=== PATIENT | female | born 2000 | race African-American/Black ===

== ENCOUNTER 2020-07-07 20:11 | Emergency (ER) | payer OTHER, SELFPAY ==
--- OUTSIDE RECORDS SUMMARY | 2020-07-07 20:14 | XMS REPORT | Continuity of Care Document ---
:2000 Author Organization 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 Clinician (SIG) Name Name Doxycycline Doxycycline 2019- No Bill [address] [facility] Monohydrate Monohydrate 11-22 Gonzalez [facility] - 00:00: 00:00 [facility] 00 :[facility] Procedures This patient has no known procedures. Encounters Start End Encounter Admission Attending Care Care Encounter Source Date/Time Date/Time Type Type Clinicians Facility Department ID 2018-11-22 2018-11-22 [facility] [id number] [facility] 11:15:00 11:15:00 Art[facility] It s [facility] 2018-11-07 2018-11-07 [facility] [id number] [facility] 11:30:00 11:30:00 [facility] 2018-10-14 2018-10-14 Emergency E [facility] [address] [facility] 23:34:00 23:34:00 2018-06-26 2018-06-26 Outpatient Kiel [facility] [id number] [facility] 15:00:00 15:00:00 [facility] Results This patient has no known results.
--- NOTE | 2020-07-08 02:25 | ER ---
[facility]: Henny Haimlton Age: 20 yrs Sex: Female : 2000 Arrival Date: 07/07/2020 Time: 20:16 Bed External Waiting Private MD: Diagnosis: Presentation: 07/07 21:00 Chief complaint: Patient states: 4 months . Vaginal bleeding since last night. ca1 Reports cramping, back pains. Coronavirus screen: Client denies travel out of the [place] in the last 14 days. At this time, the client does not indicate any symptoms associated with coronavirus-19. Ebola Screen: Patient negative for fever greater than or equal to 101.5 degrees Fahrenheit, and additional compatible Ebola Virus Disease symptoms Patient denies exposure to infectious person. Patient denies travel to an Ebola-affected area in the 21 days before illness onset. No symptoms or risks identified at this time. Initial Sepsis Screen: Does the patient meet any 2 criteria? No. Patient's initial sepsis screen is negative. Does the patient have a suspected source of infection? No. Patient's initial sepsis screen is negative. Risk Assessment: Do you want to hurt yourself or someone else? Patient reports no desire to harm self or others. Note Called to triage, no answer \T\ 2100. Onset of symptoms was July 07, 2020. 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 - Social history:: Smoking status: Patient denies any tobacco usage or history of. Assessment: 07/08 01:23 Reassessment: pt updated on NEG US results by ERP, pt to have blood drawn to complete sg treatment plan, pt continues to wait for an exam room at this time. Vital Signs: 07/07 21:20 BP 126 / 79; Pulse 96; Resp 16 S; Temp 97.5(TE); Pulse Ox 99% on R/A; Weight 77.11 kg ca1 (R); Height 5 ft. 6 in. (167.64 cm) (R); Pain 7/10; 21:20 Body Mass Index 27.44 (77.11 kg, 167.64 cm) ca1 ED Course: 20:16 Patient arrived in ED. ag3 21:22 Triage completed. ca1 21:23 Arm band placed on right wrist. ca1 22:13 Arnulfo Ko MD is Attending Physician. tw4 23:43 OB Limited In Process Unspecified. EDMS 07/08 00:18 Transvaginal OB In Process Unspecified. EDMS Administered Medications: No medications were administered Outcome: 02:24 Patient left the ED. sg Signatures: Dispatcher [employer] EDMS Skinny Bryant, RN RN Arnulfo Ko MD MD tw4 Nancy Tipton 3 Analy Cerrato RN RN ca1
[2020-07-08 03:44] LABS: Urine Specific Gravity 1.025 (1.005-1.030)
[2020-07-08 03:45] LABS: Urine Blood 3+ (NEG); Urine Glucose NEGATIVE (NEG); Urine Protein NEGATIVE (NEG); Urine Specific Gravity 1.025 (1.005-1.030)
[2020-07-08 04:57] VITALS: BP 126/79; TEMP 97.5; O2SAT 99
--- NOTE | 2020-07-08 10:31 | RAD REPORT ---
EXAM DESCRIPTION: US - Transvaginal Study Probe - 07/08/2020 6:59 am CLINICAL HISTORY: VAGINAL BLEEDING COMPARISON: None. TECHNIQUE: US LIMITED 07/07/2020 12:00 AM CDT FINDINGS: The uterus measures 8.3 cm. Endometrial stripe measures 4 mm. Both ovaries are normal in s ize with patent flow. IMPRESSION: Unremarkable study. Electronically signed by: Manny Lara MD 07/07/2020 10:33 PM CDT Due to temporary technical issues with the PACS/Fluency reporting system, reports are being signed by the in house radiologist without review as a courtesy to ensure prompt reporting. The interpreting r adiologist is fully responsible for the content of the report.
== END 2020-07-08 02:24 | disposition left against medical advice (07) ==
LOC: ER 20:11
DX: Z53.21 Procedure and treatment not carried out due to patient leaving prior to being seen by health care provider (principal)
CPT/HCPCS: 76815; 76830; 81003; 81025; 99282

== ENCOUNTER 2020-08-03 09:32 | Emergency (ER) | payer OTHER, SELFPAY ==
--- OUTSIDE RECORDS SUMMARY | 2020-08-03 09:36 | XMS REPORT | Continuity of Care Document ---
:2000 Author Organization [facility] t Address 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 Clinician (SIG) Name Name Doxycycline Doxycycline 2019- No Bill [address] Monohydrate Monohydrate 11-2214 Carlos Adame - 00:00: 00:00 [facility] 00 :00 [facility] Procedures This patient has no known procedures. Encounters Start End Encounter Admission Attending Care Care Encounter Source Date/Time Date/Time Type Type Clinicians Facility Department ID 2018-11-22 2018-11-22 Outpatient Kiel Kielizabella [id number] [address] 11:15:00 11:15:00 [facility]INOS [facility] 2018-11-07 2018-11-07 Outpatient Darekargenis Sandra [id number] [address] 11:30:00 11:30:00 [facility] 2018-10-14 2018-10-14 Emergency E [facility] [address] [facility] 23:34:00 23:34:00 2018-06-26 2018-06-26 Outpatient Darekargenis Sandra [id number] 15:00:00 15:00:00 [facility] Results Test Description Test Time Test Comments Results Result Comments Source HCG SERUM 2020-07-16 18:31:00 Test Item Value Reference Range Interpretation Comme nts HCG SERUM (test code = HCG) < 1 mi-IU/ML 0-6 N 0 - 6 NOT > 6 SUGGESTIVE OF EARLY RISES TWO FOLD EVERY 2 DAYS; SUGGEST REC ONFIRMING AFTER 2 D AYS. 150,000-200,[address] TRIMESTER 10,000 - 50,000 2ND & 3RD TRIME STER BASIC METABOLIC [id number] 18:15:00 Test Item Value Reference Range Interpretation Comments SODIUM (test code = NA) 138 mmol/L 134-147 N POTASSIUM (test code = 3.3 mmol/L 3.4-5.0 L K) CHLORIDE (test code = 105 mmol/L 100-108 N CL) CARBON DIOXIDE (test 28 mmol/L 21-32 N code = CO2) ANION GAP (test code = 5.0 GAP calc 4.0-15.0 N GAP) GLUCOSE (test code = 93 MG/DL 70-110 N GLU) BLOOD UREA NITROGEN 11 MG/DL 7-18 N (test code = BUN) GLOMERULAR FILTRATION >=60 max estimate >60 RATE (test code = GFR) estGFR CREATININE (test code = 0.6 MG/DL 0.6-1.0 N CREAT) CALCIUM (test code = CA) 9.1 MG/DL 8.5-10.1 N CBC W/AUTO [id number] 18:08:00 Test Item Value Reference Range Interpretation Comments WHITE BLOOD CELL (test code = 5.0 K/mm3 3.5-11.0 N WBC) RED BLOOD CELL (test code = 3.57 M/mm3 4.70-6.10 L RBC) HEMOGLOBIN (test code = HGB) 10.2 G/DL 10.4-14.9 L HEMATOCRIT (test code = HCT) 31.7 % 31.5-44.1 N MEAN CELL VOLUME (test code = 88.8 Fl 84.5-98.6 N MCV) MEAN CELL HGB (test code = MCH) 28.6 pg 27.0-34.2 N MEAN CELL HGB CONCETRATION 32.2 G/DL 31.5-34.0 N (test code = MCHC) RED CELL DISTRIBUTION WIDTH 15.2 SD 11.5-14.5 H (test code = RDW) PLATELET COUNT (test code = 329 K/mm3 150-450 N PLT) MEAN PLATELET VOLUME (test code 8.60 fL 7.0-10.5 N = MPV) NEUTROPHIL % (test code = NT%) 58.1 % 40-76 N IMMATURE GRANULOCYTE % (test 0.4 % 0.0-5.0 N code = IG%) LYMPHOCYTE % (test code = LY%) 32.7 % 20.5-51.1 N MONOCYTE % (test code = MO%) 8.4 % 1.7-9.3 N EOSINOPHIL % (test code = EO%) 0.2 % 0.0-6.0 N BASOPHIL % (test code = BA%) 0.2 % 0.0-2.0 N NUCLEATED RBC % (test code = 0.0 /100WBC% 0.0-1.0 N NRBC%) NEUTROPHIL # (test code = NT#) 2.9 K/mm3 1.8-7.6 N IMMATURE GRANULOCYTE # (test 0.02 x10 3/uL 0.00-0.03 N code = IG#) LYMPHOCYTE # (test code = LY#) 1.6 K/mm3 0.6-3.2 N MONOCYTE # (test code = MO#) 0.4 K/mm3 0.3-1.1 N EOSINOPHIL # (test code = EO#) 0.0 K/mm3 0.0-0.4 N BASOPHIL # (test code = BA#) 0.0 K/mm3 0.0-0.1 N NUCLEATED RBC # (test code = 0.0 K/mm3 0.0-0.1 N NRBC#) MANUAL DIFF REQUIRED (test code NO DIFF/SCN CRITERIA = MDIFF) UA RFLX MICR CULT IF [id number] 18:04:00 Test Item Value Reference Range Interpretation Comments UA COLOR (test code = RED discript YEL/STRAW A COLU) UA APPEARANCE (test code HAZY discript CLEAR A = APPU) UA GLUCOSE DIPSTICK (test NEGATIVE mg/dL NEG code = DGLUU) UA BILIRUBIN DIPSTICK NEGATIVE mg/dL NEG (test code = BILU) UA KETONE DIPSTICK (test NEGATIVE mg/dL NEG code = KETU) UA SPECIFIC GRAVITY (test 1.020 SG 1.005-1.030 code = SGU) UA BLOOD DIPSTICK (test 3+ mg/DL NEG A code = ANGEL) UA PH DIPSTICK (test code 7.5 pH UNITS 5.0-7.0 A = KULWANT) UA PROTEIN DIPSTICK (test TRACE mg/dL NEG A code = PROU) UA UROBILINIOGEN DIPSTICK 0.2 mg/dL <2.0 (test code = URO) UA NITRITE DIPSTICK (test NEGATIVE SCREEN NEG code = ROMINA) UA LEUKOCYTE ESTERASE NEGATIVE Leuk/mcL NEGATIVE DIPSTICK (test code = LEUU) UA WBC (test code = WBCU) 5-10 #WBC/HPF 0-3 A UA RBC (test code = RBCU) 1-3 #RBC/HPF 0-3 UA BACTERIA (test code = 1+ /HPF NONE-TRACE A BACU) UA CULTURE NEEDED? (test NO, WBC<10 Criteria Culture CHK code = UACULT) Indication for culture: Dysuria/FrequencyUA RFLX MICR CULT IF INDICATED 2020-07-16 17:57:00 Test Item Value Reference Range Interpretation Comments UA COLOR (test code = COLU) RED discript YEL/STRAW A UA APPEARANCE (test code = HAZY discript CLEAR A APPU) UA GLUCOSE DIPSTICK (test NEGATIVE mg/dL NEG code = DGLUU) UA BILIRUBIN DIPSTICK (test NEGATIVE mg/dL NEG code = BILU) UA KETONE DIPSTICK (test NEGATIVE mg/dL NEG code = KETU) UA SPECIFIC GRAVITY (test 1.020 SG 1.005-1.030 code = SGU) UA BLOOD DIPSTICK (test 3+ mg/DL NEG A code = ANGEL) UA PH DIPSTICK (test code = 7.5 pH UNITS 5.0-7.0 A KULWANT) UA PROTEIN DIPSTICK (test TRACE mg/dL NEG A code = PROU) UA UROBILINIOGEN DIPSTICK 0.2 mg/dL <2.0 (test code = URO) UA NITRITE DIPSTICK (test NEGATIVE SCREEN NEG code = ROMINA) UA LEUKOCYTE ESTERASE NEGATIVE Leuk/mcL NEGATIVE DIPSTICK (test code = LEUU) UA CULTURE NEEDED? (test Criteria Culture CHK code = UACULT) Indication for culture: Dysuria/Frequency- US PREG 1ST [id number] 17:52:00[facility] 2000 Sex: F Name: MARYSE ROBLES [facility] : 2000 Age/S: 20 / F [id number] [address] [place] Unit #: [id number] Loc: [place] [address] Phys: Vishnu Sanon MD Acct: [id number] Dis Date: Status: REG ER PHONE #: [phone] Exam Date: 07/16/2020 1723 FAX #: Reason: pelvic pain EXAMS: CPT: [id number] US PREG 1ST TRIMTR [id number] Pelvic ultrasound History: pelvic pain Comparison: None at this time Location: H45 Transabdominal and endovaginal sonography of the pelvis was performed. The uterus measures 8.5 x 4.1 x 4.1 centimeters in length, AP diameter and width. The endometrial stripe measures 5 mm in thickness. No intrauterine is identified. The right ovary measures 4.2 x 1.5 x 3.2 cm in size. The left ovary measures 4.2 x 2.2x 2.9 cm in size. There is a trace amount of free fluid. No adnexal masses are seen. Spectral Doppler, color flow Doppler and grayscale sonography of the ovaries was performed. There is arterial blood flow identified within both ovaries. There are nabothian cysts in the cervix. IMPRESSION: There is a trace amount of free fluid in the pelvis. Otherwise unremarkable exam. No intrauterine is identified. With a given history of positive test and no intrauteri ne identified, these findings could represent a very early intrauterine orectopic that is not visualized or a nearly completed . Follow-up beta hCGand pelvic ultrasound are recommended. at 1752 Reported and signed by: Jax Lujan M.D. PAGE 1 Signed Report (CONTINUED) Name: MARYSE ROBLES [facility] : 2000 Age/S: 20 / F [address] [address] [place] Unit #: [id number] Loc: [place] [address] Phys: Vishnu Sanon MD Acct: [id number] Dis Date: Status: REG ER PHONE #: [phone] Exam Date: 07/16/2020 1724 FAX #: Reason: pelvic pain EXAMS: CPT: [id number] US PREG 1ST TRIMTR [id number] <Continued> CC: Vishnu Sanon MD Technologist: Barb Mcpherson [facility] Date/Time: 07/16/2020 (1752) Hodan PAGE 2 Signed Report Name[facility] 2000 Age/S: 20 / F [id number] [address] [place] Unit #: [id number] Loc: [place] [address] Phys: Vishnu Sanon MD Acct: [id number] Dis Date: Status: REG ER PHONE #: [phone] Exam Date: 07/16/20201722 FAX #: Reason: pelvic pain EXAMS: CPT: [id number] US PREG 1ST TRIMTR 52453 <Continued> Orig Print D/T: S: 07/16/2020 (1755) Probe: PAGE 3 Signed Report- US PREG UT [id number] 17:52:00 [facility] : 2000 Sex: F Name: MARYSE ROBLES [facility] : 2000 Age/S: 20 / F [id number] [facility] Unit #: [id number] Loc: [place] [address] Phys: Vishnu Sanon MD Acct: [id number] Dis Date: Status: REG ER PHONE #: [phone] Exam Date: 07/16/20201722 FAX #: Reason: pelvic pain EXAMS: CPT: [id number] US PREG UT TRANSVAGINAL 22662 Pelvic ultrasound History: pelvic pain Comparison: None at this time Location: H45 Transabdominal and endovaginal sonography of the pelvis was performed. The uterus measures 8.5 x 4.1 x 4.1 centimeters in length, AP diameter and width. The endometrial stripe measures 5 mm in thickness. No intrauterine is identified. The right ovary measures 4.2 x 1.5 x 3.2 cm in size. The left ovary measures 4.2 x 2.2x 2.9 cm in size. There is a trace amount of free fluid. No adnexal masses are seen. Spectral Doppler, color flow Doppler and grayscale sonography of the ovaries was performed. There is arterial blood flow identified within both ovaries. There are nabothian cysts in the cervix. IMPRESSION: There is a trace amount of free fluid in the pelvis. Otherwise unremarkable exam. No intrauterine is identified. With a given history of positive test and no intrauteri ne identified, these findings could represent a very early intrauterine orectopic that is not visualized or a nearly completed . Follow-up beta hCGand pelvic ultrasound are recommended. at 1752 Reported and signed by: Jax Lujan M.D. PAGE 1 Signed Report (CONTINUED) Name: MARYSE ROBLES [place] : 2000 Age/S: 20 / F [id number] [address] [place] Unit #: [id number] Loc: [place] [address] Phys: Vishnu Sanon MD Acct: [id number] Dis Date: Status: REG ER PHONE #: [phone] Exam Date: 07/16/2020 1723 FAX #: Reason: pelvic pain EXAMS: CPT: [id number] US PREG UT TRANSVAGINAL 01490 <Continued> CC: Vishnu Sanon MD Technologist: Barb Mcpherson [facility] Date/Time: 07/16/2020 (481) t.SDR.PMT PAGE 2 Signed Report Name: MARYSE ROBLES [place] : 2000 Age/S: 20 / F [id number] [address] [place] Unit #: [id number] Loc: [place] [address] Phys: Vishnu Sanon MD Acct: [id number] Dis Date: Status: REG ER PHONE #: [phone] Exam Date: 07/16/2020 1723 FAX #: Reason: pelvic pain EXAMS: CPT: [id number] US PREG UT TRANSVAGINAL [id number] <Continued> Orig Print D/T: S: 07/16/2020 (9765) Probe: [id number] PAGE 3 Signed Report
--- NOTE | 2020-08-03 10:10 | ER ---
Nurse's Notes [facility] Name: Henny Hamilton Age: 20 yrs Sex: Female : 2000 Arrival Date: 08/03/2020 Time: 09:37 Bed 5 Private MD: Diagnosis: Acute pharyngitis;Otitis media, unspecified, left ear Presentation: 08/03 09:41 Chief complaint: Patient states: sore throat/swelling and left ear pain for weeks. sv Coronavirus screen: Client denies travel out of the [place] in the last 14 days. At this time, the client does not indicate any symptoms associated with coronavirus-19. Ebola Screen: No symptoms or risks identified at this time. Risk Assessment: Do you want to hurt yourself or someone else? Patient reports no desire to harm self or others. Onset of symptoms was 2020. 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 - Social history:: Smoking status: Patient denies any tobacco usage or history of. Screenin:50 Abuse screen: Denies threats or abuse. Denies injuries from another. Nutritional ss screening: No deficits noted. Tuberculosis screening: Never had TB. Fall Risk None identified. Assessment: 09:50 General: Appears uncomfortable, Behavior is calm, cooperative, Reports feeling ill for ss x weeks. Pain: Complains of pain in left ear, throat. Neuro: Level of Consciousness is awake, alert, obeys commands, Oriented to person, place, time, Bin Packer are equal bilaterally Speech is normal. Neuro: Level of Consciousness is awake, alert, obeys commands, Oriented to person, place, time. Cardiovascular: Capillary refill < 3 seconds is brisk in bilateral fingers Patient's skin is warm and dry. Respiratory: Airway is patent Respiratory effort is even, unlabored, Respiratory pattern is regular, symmetrical. GI: Patient currently denies diarrhea, nausea, vomiting. : No signs and/or symptoms were reported regarding the genitourinary system. EENT: Oral mucosa is moist. Throat is clear. Derm: Skin is intact, is healthy with good turgor, Skin is dry, Skin is pink, warm \T\ dry. normal. Derm: Skin is pink, warm \T\ dry. normal. Musculoskeletal: Range of motion: intact in all extremities, Swelling present in throat. Vital Signs: 09:41 Temp 98.9; Weight 74.84 kg; Height 5 ft. 6 in. (167.64 cm); sv 09:50 Resp 14; ss 10:01 BP 122 / 79; Pulse 88; Pulse Ox 100% on R/A; ss 09:41 Body Mass Index 26.63 (74.84 kg, 167.64 cm) sv ED Course: 09:37 Patient arrived in ED. mr 09:38 Orlando Hall, LYNN is PHCP. pm1 09:38 Paul Joel MD is Attending Physician. pm1 09:41 Triage completed. sv 09:42 Arm band placed on Patient placed in an exam room, on a stretcher. sv 09:50 Patient has correct armband on for positive identification. Bed in low position. Call ss light in reach. 10:00 Emily Luna, ULISES is Primary Nurse. hb 10:04 Strep Sent. kj1 10:21 No provider procedures requiring assistance completed. Patient did not have IV access ss during this emergency room visit. Administered Medications: 10:00 Drug: Duncan (HYDROcodone-acetaminophen) 5 mg-325 mg 1 tabs Route: PO; hb 10:20 Follow up: Response: No adverse reaction ss 10:02 Drug: Decadron (dexamethasone) 10 mg Route: IM; Site: right deltoid; hb 10:20 Follow up: Response: No adverse reaction ss Outcome: 10:10 Discharge ordered by MD. pm1 10:21 Discharged to home ambulatory. ss 10:21 Condition: good 10:21 Discharge instructions given to patient, Instructed on discharge instructions, follow up and referral plans. medication usage, Demonstrated understanding of instructions, follow-up care, medications, Prescriptions given X 2. 10:21 Patient left the ED. Signatures: Raine Tong RN RN Trinity Luke mr Tere Landis RN RN Orlando Hall FUR BLOWER FUR BLOWER pm1 Emily Luna, RN RN Donna Stokes kj1
--- NOTE | 2020-08-03 10:11 | EDPHYS ---
Physician Documentation [facility] Name: Henny Hamilton Age: 20 yrs Sex: Female : 2000 Arrival Date: 08/03/2020 Time: 09:37 Bed 5 Private MD: ED Physician Paul Joel HPI: 08/03 09:55 This 20 yrs old Black Female presents to ER via Ambulatory with complaints of Ear Pain, pm1 Sore Throat. 09:55 The patient presents with pain. The complaints affect the left ear. pm1 09:55 Onset: The symptoms/episode began/occurred today, ear pain and sore throat on and off pm1 for multiple weeks. Modifying factors: The symptoms are alleviated by nothing, the symptoms are aggravated by swallowing. Associated signs and symptoms: Pertinent negatives: cough, fever. Severity of symptoms: in the emergency department the symptoms are worse. The patient has experienced similar episodes in the past, multiple times. The patient has not recently seen a physician. 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 - Social history:: Smoking status: Patient denies any tobacco usage or history of. ROS: 09:55 Constitutional: Negative for fever, chills, and weight loss. pm1 09:55 Cardiovascular: Negative for chest pain, palpitations, and edema, Respiratory: Negative for shortness of breath, cough, wheezing, and pleuritic chest pain, Abdomen/GI: Negative for abdominal pain, nausea, vomiting, diarrhea, and constipation, Skin: Negative for injury, rash, and discoloration, Neuro: Negative for headache, weakness, numbness, tingling, and seizure. 09:55 ENT: Positive for ear pain, sore throat, Negative for drainage from ear(s). Exam: 09:55 Constitutional: This is a well developed, well nourished patient who is awake, alert, pm1 and in no acute distress. Head/Face: Normocephalic, atraumatic. 09:55 Back: No spinal tenderness. No costovertebral tenderness. Full range of motion. Skin: Warm, dry with normal turgor. Normal color with no rashes, no lesions, and no evidence of cellulitis. MS/ Extremity: Pulses equal, no cyanosis. Neurovascular intact. Full, normal range of motion. 09:55 Cardiovascular: Exam negative for acute changes, Rate: normal, Rhythm: regular, Pulses: no pulse deficits are appreciated. 09:55 Respiratory: Exam negative for acute changes, respiratory distress, shortness of breath, Breath sounds: are clear throughout. 09:55 Neuro: Exam negative for acute changes, Orientation: is normal, Mentation: is normal, Motor: is normal, moves all fours, Gait: is steady, at a normal pace, without difficulty. 09:55 ENT: External ear(s): are unremarkable, Ear canal(s): are normal, TM's: bulging, on the pm1 left, erythema, that is mild, on the left, Examination of the other ear shows no obvious abnormality, Posterior pharynx: Airway: no evidence of obstruction, Tonsils: bilaterally enlarged, with erythema, with exudate, no ulcerations, peritonsillar mass, is not appreciated, pooling of secretions, is not appreciated. Vital Signs: 09:41 Temp 98.9; Weight 74.84 kg; Height 5 ft. 6 in. (167.64 cm); sv 09:50 Resp 14; ss 10:01 BP 122 / 79; Pulse 88; Pulse Ox 100% on R/A; ss 09:41 Body Mass Index 26.63 (74.84 kg, 167.64 cm) sv MDM: 09:39 Patient medically screened. pm1 10:03 Data reviewed: vital signs. Data interpreted: Pulse oximetry: on room air is 100 %. pm1 Interpretation: normal. 10:09 Counseling: I had a detailed discussion with the patient and/or guardian regarding: the pm1 historical points, exam findings, and any diagnostic results supporting the discharge/admit diagnosis, the need for outpatient follow up, to return to the emergency department if symptoms worsen or persist or if there are any questions or concerns that arise at home. 08/03 09:55 Order name: Strep; Complete Time: 11:00 pm1 08/03 10:18 Order name: Throat Culture EDMS Administered Medications: 10:00 Drug: [place] (HYDROcodone-acetaminophen) 5 mg-325 mg 1 tabs Route: PO; hb 10:20 Follow up: Response: No adverse reaction ss 10:02 Drug: Decadron (dexamethasone) 10 mg Route: IM; Site: right deltoid; hb 10:20 Follow up: Response: No adverse reaction ss Disposition: 12:21 Co-signature as Attending Physician, Paul Joel MD. rn Disposition: 08/03/20 10:10 Discharged to Home. Impression: Acute pharyngitis, Otitis media, unspecified, left ear. - Condition is Stable. - Discharge Instructions: Otitis Media, Adult, Pharyngitis. - Prescriptions for Diclofenac Sodium 75 mg Oral Tablet, Delayed Release (E.C.) - take 1 tablet by ORAL route 2 times per day As needed; 30 tablet. Augmentin 875- 125 mg Oral Tablet - take 1 tablet by ORAL route every 12 hours for 10 days; 20 tablet. - Work release form, Medication Reconciliation Form, Thank You Letter, Antibiotic Education, Prescription Opioid Use form. - Follow up: Emergency Department; When: As needed; Reason: Worsening of condition. Follow up: Private Physician; When: 2 - 3 days; Reason: Recheck today's complaints, Continuance of care, Re-evaluation by your physician. - Problem is new. - Symptoms have improved. Signatures: Dispatcher [employer] EDRaine Wood, RN Paul Villalba MD MD rn Smirch, Shelby, RN RN ss Orlando Hall, BUDGET ACCOUNTANT BUDGET ACCOUNTANT pm1 Emily Luna RN RN Corrections: (The following items were deleted from the chart) 10:21 10:10 08/03/2020 10:10 Discharged to Home. Impression: Acute pharyngitis; Otitis media, ss unspecified, left ear. Condition is Stable. Forms are Medication Reconciliation Form, Thank You Letter, Antibiotic Education, Prescription Opioid Use. Follow up: Emergency Department; When: As needed; Reason: Worsening of condition. Follow up: Private Physician; When: 2 - 3 days; Reason: Recheck today's complaints, Continuance of care, Re-evaluation by your physician. Problem is new. Symptoms have improved. pm1
[2020-08-03] MEDS ORDERED: dexAMETHasone 10 MG/ML VIAL ONE (10:16)
[2020-08-03] MEDS ORDERED: HYDROCODONE/APAP 5/325 MG TAB ONE (10:16)
== END 2020-08-03 10:21 | disposition home or self-care (01) ==
LOC: ER 09:32
DX: H66.92 Otitis media, unspecified, left ear (principal); J02.9 Acute pharyngitis, unspecified; Z88.1 Allergy status to other antibiotic agents
CPT/HCPCS: 87070; 87081; 96372; 99283; J1100

== ENCOUNTER 2020-12-23 02:02 | Emergency (ER) | payer OTHER ==
--- OUTSIDE RECORDS SUMMARY | 2020-12-23 02:05 | XMS REPORT | Continuity of Care Document ---
:2000 Author Organization [facility] t Address [address] [place] [address] [address] [place] [address] Care Team Providers Name Role Phone Unavailable Unavailable Unavailable Payers Payer Name Policy Type Policy Number Effective Date Expiration Date S ource Problems Condition Condition Condition Status Onset Resolution Last Treating Co mments Source Name Details Category Date Date Treatment Clinician Date Cannabis Cannabis Diagnosis Active [facility] Adult BMI Adult BMI Diagnosis Active [facility] 26.0-26.9 26.0-26.9 Luke s - kg/sq m kg/sq m [facility] 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 Clinician (SIG) Name Name Doxycycline Doxycycline 2019- No Bill [address] [facility] Monohydrate Monohydrate 11-22 [facility]: [facility]00 [facility] 00 :00 [facility] Procedures This patient has no known procedures. Encounters Start End Encounter Admission Attending Care Care Encounter Source Date/Time Date/Time Type Type Clinicians Facility Department ID 2018-11-22 2018-11-22 Outpatient Kiel Melvin [id number] [facility] 11:15:00 11:15:00 [facility] [employer] [facility] 2018-11-07 2018-11-07 Outpatient Kiel Flores [id number] 11:30:00 11:30:00 [facility] [employer] [facility] 2018-10-14 2018-10-14 Emergency E [facility] [id number] [facility] 23:34:00 23:34:00 2018-06-26 2018-06-26 Outpatient Kiel Flores [id number] 15:00:00 15:00:00 [facility] Results Test Description Test Time Test Comments [...] 2ND & 3RD TRIME STER BASIC METABOLIC [id number] 18:15:00 Test Item Value Reference Range Interpretation [...] CA) 9.1 MG/DL 8.5-10.1 N CBC W/AUTO [id number] 18:08:00 Test Item Value Reference Range Interpretation [...] = MDIFF) UA RFLX MICR CULT IF [id number] 18:04:00 Test Item Value Reference Range Interpretation [...] Indication for culture: Dysuria/Frequency- US PREG 1ST [id number] [facility]52[facility] 2000 Sex: F Name: MARYSE ROBLES [facility] : 2000 Age/S: 20 / F [address] Unit #: [id number] Loc: [place]kie Rawls [address] Phys: Vishnu Sanon MD Acct: [id number] Dis Date: Status: REG ER PHONE #: [phone] Exam Date: 07/16/2020 1723 FAX #: Reason: pelvic pain EXAMS: CPT: [id number] US PREG 1ST TRIMTR [id number] Pelvic ultrasound History: pelvic pain Comparison: None [...] 1 Signed Report (CONTINUED) Name: MARYSE ROBLES [facility] : 2000 Age/S: 20 / F [id number] [address] Unit #: [id number] Loc: [place] [address] Phys: Vishnu Sanon MD Acct: [id number] Dis Date: Status: REG ER PHONE #: [phone] Exam Date: 07/16/2020 1723 FAX #: Reason: pelvic pain EXAMS: CPT: [id number] US PREG 1ST TRIMTR [id number] <Continued> CC: iVshnu Sanon MD Technologist: Barb Mcpherson Trnscb Date/Time: 07/16/2020 (1752) [place] PAGE 2 Signed Report Name: MARYSE ROBLES [facility] : 2000 Age/S: 20 / F [address] Unit #: [id number] Loc: [place] [address] Phys: Vishnu Sanon MD Acct: [id number] Dis Date: Status: REG ER PHONE #: [phone] Exam Date: 07/16/20201722 FAX #: Reason: pelvic pain EXAMS: CPT: [id number] US PREG 1ST TRIMTR [id number] <Continued> Orig Print D/T: S: 07/16/2020 (9155) Probe: PAGE 3 Signed Report- US PREG UT [id number] 17:52:00 [facility] 2000 Sex: F Name: MARYSE ROBLES [facility] : 2000 Age/S: 20 / F [id number] [address] Unit #: [id number] Loc: [place] [address] Phys: Vishnu Sanon MD Acct: [id number] Dis Date: Status: REG ER PHONE #: [phone] Exam Date: 07/16/20201722 FAX #: Reason: pelvic pain EXAMS: CPT: [id number] US PREG UT TRANSVAGINAL [id number] Pelvic ultrasound History: pelvic pain Comparison: None at this time Location: 5 Transabdominal and endovaginal sonography of the pelvis [...] PAGE 1 Signed Report (CONTINUED) [place]: [place] : 2000 Age/S: 20 / F [id number] [address] Unit #: [id number] Loc: [place] [address] Phys: Vishnu Sanon MD Acct: [id number] Dis Date: Status: REG ER PHONE #: [phone] Exam Date: 07/16/2020 172 FAX #: Reason: pelvic pain EXAMS: CPT: [id number] US PREG UT TRANSVAGINAL [id number] <Continued> CC: Vishnu Sanon MD Technologist: Barb Mcpherson Trnmdb Date/Time: 07/16/2020 (1752) [email or web address] PAGE 2 Signed Report Name: MARYSE ROBLES [place] : 2000 Age/S: 20 / F [id number] [address] Unit #: [id number] Loc: [place] [address] Phys: Vishnu Sanon MD Acct: [id number] Dis Date: Status: REG ER PHONE #: [phone] Exam Date: 07/16/2020 172 FAX #: Reason: pelvic pain EXAMS: CPT: [id number] US PREG UT TRANSVAGINAL [id number] <Continued> Orig Print D/T: S: 07/16/2020 (9525) Probe: [id number] PAGE 3 Signed Report
--- NOTE | 2020-12-23 02:34 | EDPHYS ---
Physician Documentation [facility] Name: Henny Hamilton Age: 20 yrs Sex: Female : 2000 Arrival Date: 12/23/2020 Time: 02:04 Bed 16 Private MD: ED Physician Nory Banks HPI: 12/23 02:32 This 20 yrs old Black Female presents to ER via Ambulatory with complaints of Sore ma2 Throat. 02:32 The patient presents with sore throat. The patient describes throat pain as constant. ma2 Onset: The symptoms/episode began/occurred gradually, 1 week(s) ago. Severity of symptoms: At their worst the symptoms were mild, in the emergency department the symptoms are unchanged. Associated signs and symptoms: Pertinent negatives cough, earache, flu-like symptoms, nausea. The patient has not experienced similar symptoms in the past. 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 - Social history:: Smoking status: Patient denies any tobacco usage or history of. - Family history:: not pertinent. ROS: 02:32 Constitutional: Negative for fever, chills, and weight loss. ma2 02:32 All other systems are negative. Exam: 02:32 Constitutional: This is a well developed, well nourished patient who is awake, alert, ma2 and in no acute distress. Head/Face: Normocephalic, atraumatic. Eyes: Pupils equal round and reactive to light, extra-ocular motions intact. Lids and lashes normal. Conjunctiva and sclera are non-icteric and not injected. Cornea within normal limits. Periorbital areas with no swelling, redness, or edema. ENT: bilat tonsillitis, otherwise Nares patent. No nasal discharge, no septal abnormalities noted. Tympanic membranes are normal and external auditory canals are clear. Oropharynx with no redness, swelling, or masses, exudates, or evidence of obstruction, uvula midline. Mucous membranes moist. Neck: Trachea midline, no thyromegaly or masses palpated, and no cervical lymphadenopathy. Supple, full range of motion without nuchal rigidity, or vertebral point tenderness. No Meningismus. Chest/axilla: Normal chest wall appearance and motion. Nontender with no deformity. No lesions are appreciated. Cardiovascular: Regular rate and rhythm with a normal S1 and S2. No gallops, murmurs, or rubs. Normal PMI, no JVD. No pulse deficits. Respiratory: Lungs have equal breath sounds bilaterally, clear to auscultation and percussion. No rales, rhonchi or wheezes noted. No increased work of breathing, no retractions or nasal flaring. Abdomen/GI: Soft, non-tender, with normal bowel sounds. No distension or tympany. No guarding or rebound. No evidence of tenderness throughout. Vital Signs: 02:14 BP 123 / 80; Pulse 120; Resp 20; Temp 102.9; Pulse Ox 98% on R/A; Weight 81.65 kg; em MDM: 02:32 Patient medically screened. ma2 02:32 Differential diagnosis: gastroesophageal reflux disease, tonsillitis, upper respiratory ma2 infection, viral syndrome. Data reviewed: vital signs, nurses notes. Counseling: I had a detailed discussion with the patient and/or guardian regarding: the historical points, exam findings, and any diagnostic results supporting the discharge/admit diagnosis, the presence of at least one elevated blood pressure reading (>120/80) during this emergency department visit, the need for outpatient follow up. Response to treatment: the patient's symptoms have markedly improved after treatment. Administered Medications: 02:49 Drug: HYDROcodone-acetaminophen 5 mg-325 mg 1 tabs Route: PO; ms4 02:50 Drug: AZITHromycin 500 mg Route: PO; ms4 Disposition Summary: 12/23/20 02:34 Discharge Ordered Location: Home ma2 Condition: Stable ma2 Diagnosis - Acute tonsillitis, unspecified ma2 Followup: ma2 - With: Private Physician - When: Tomorrow - Reason: Continuance of care Discharge Instructions: - Discharge Summary Sheet ma2 - Tonsillitis, [id number] ma2 Forms: - Medication Reconciliation Form ma2 - Thank You Letter ma2 - Antibiotic Education ma2 - Prescription Opioid Use ma2 Prescriptions: - Diclofenac Sodium 75 mg Oral Tablet Sustained Release - take 1 tablet by ORAL route 2 times per day; 30 tablet; Refills: 0, Product ma2 Selection Permitted - Zithromax Z-Deny 250 mg Oral Tablet - take 1 tablet by ORAL route as directed for 5 days Day 1 - take two (2) tablets ma2 one time. Day 2, 3, 4 , 5 take one (1) tablet once daily.; 6 tablet; Refills: 0, Product Selection Permitted - Medrol (Deny) 4 mg Oral Tablets, Dose Pack - take 1 tablet by ORAL route as directed - follow package instructions; 1 ma2 packet; Refills: 0, Product Selection Permitted Signatures: Ron Negron RN RN Nory Bower MD MD ma2 Alma Delia Ghosh RN RN ms4
--- NOTE | 2020-12-23 02:34 | ER ---
Nurse's Notes [facility] Name: Henny Hamilton Age: 20 yrs Sex: Female : 2000 Arrival Date: 12/23/2020 Time: 02:04 Bed 16 Private MD: Diagnosis: Acute tonsillitis, unspecified Presentation: 12/23 02:14 Chief complaint: Patient states: sore throat and right ear ache that started yesterday, em denies fever. Coronavirus screen: Vaccine status: Patient reports being unvaccinated. Ebola Screen: Patient negative for fever greater than or equal to 101.5 degrees Fahrenheit, and additional compatible Ebola Virus Disease symptoms Patient denies exposure to infectious person. Patient denies travel to an Ebola-affected area in the 21 days before illness onset. No symptoms or risks identified at this time. Initial Sepsis Screen: Does the patient meet any 2 criteria? HR > 90 bpm. No. Patient's initial sepsis screen is negative. Does the patient have a suspected source of infection? No. Patient's initial sepsis screen is negative. Risk Assessment: Do you want to hurt yourself or someone else? Patient reports no desire to harm self or others. Onset of symptoms was December 23, 2020. 02:14 Method Of Arrival: Ambulatory em 02:14 Acuity: ROULA 3 em Triage Assessment: 02:50 General: Appears in no apparent distress. Behavior is calm, cooperative. 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 - Social history:: Smoking status: Patient denies any tobacco usage or history of. - Family history:: not pertinent. Screenin:50 Abuse screen: Denies threats or abuse. Denies injuries from another. Nutritional ms4 screening: No deficits noted. Tuberculosis screening: No symptoms or risk factors identified. Fall Risk None identified. Assessment: 02:50 Pain: Complains of pain in throat. Respiratory: Airway is patent Respiratory effort is ms4 even, unlabored, Breath sounds are clear bilaterally. EENT: Throat is reddened. Vital Signs: 02:14 BP 123 / 80; Pulse 120; Resp 20; Temp 102.9; Pulse Ox 98% on R/A; Weight 81.65 kg; em ED Course: 02:04 Patient arrived in ED. bp1 02:17 Triage completed. em 02:17 Arm band placed on. em 02:32 Nory Banks MD is Attending Physician. ma2 02:50 No provider procedures requiring assistance completed. Patient did not have IV access ms4 during this emergency room visit. 02:51 Patient has correct armband on for positive identification. ms4 Administered Medications: 02:49 Drug: HYDROcodone-acetaminophen 5 mg-325 mg 1 tabs Route: PO; ms4 02:50 Drug: AZITHromycin 500 mg Route: PO; ms4 Outcome: 02:34 Discharge ordered by . ma2 02:51 Discharged to home ambulatory. ms4 02:51 Condition: stable 02:51 Discharge instructions given to patient, Instructed on discharge instructions, follow up and referral plans. Demonstrated understanding of instructions, follow-up care, Prescriptions given X 3. 02:51 Patient left the ED. ms4 Signatures: Ron Negron, RN RN Nory Banks MD MD ma2 Therese Vick [facility] Alma Delia Ghosh RN RN ms4
[2020-12-23] MEDS ORDERED: AZITHROMYCIN 250 MG TAB ONE ×2 (03:00→03:01)
[2020-12-23] MEDS ORDERED: HYDROCODONE/APAP 5/325 MG TAB ONE ×2 (03:01)
[2020-12-23 03:09] VITALS: BP 123/80; TEMP 102.9; O2SAT 98
== END 2020-12-23 02:51 | disposition home or self-care (01) ==
LOC: ER 02:02
DX: J03.90 Acute tonsillitis, unspecified (principal); Z88.1 Allergy status to other antibiotic agents
CPT/HCPCS: 99283

== ENCOUNTER 2022-02-28 11:01 | Emergency (ER) | payer OTHER, SELFPAY ==
--- OUTSIDE RECORDS SUMMARY | 2022-02-28 12:10 | XMS REPORT | Continuity of Care Document ---
:2000 Author Organization [facility] t Address [address] [place] [address] Care Team Providers Name Role Phone Unavailable Unavailable Unavailable Payers Payer Name Policy Type Policy Number Effective Date Expiration Date S ource Problems Condition Condition Condition Status Onset Resolution Last Treating Co mments Source Name Details Category Date Date Treatment Clinician Date Cannabis Cannabis Diagnosis Active Com mon abuse abuse [place] Adult BMI Adult BMI Diagnosis Active C ommon 26.0-26.9 26.0-26.9 Spir it kg/sq m kg/sq [facility] Positive Positive Problem Active Commo n RPR test RPR test [place] 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[facility] virus 2) virus 2) St infection infection [facility] Serum Serum Diagnosis Active Common positive positive [facility] for [facility] - [facility] Allergies, Adverse Reactions, Alerts Allergy Allergy Status Severity Reaction(s) Onset Inactive Treating Comm ents Source Name Type Date Date Clinician No Known DA Active U [facility] Allergie 3-24 [place] [facility] 00:00: d 00 [facility] No Known DA Active U [facility] Allergie -24 [place] 00:00: d 00 [facility] Doxycycl Adverse Active hives Common ine Reaction [place] Medications Ordered Filled Start Stop Current Ordering Indication Dosage Frequency Signature Comments Components Source Medication Medication Date Date Medication? Clinician (SIG) Name Name Doxycycline Doxycycline 2019-0 2019- No Bill 1 tablet Common Monohydrate Monohydrate 11-22 0814 [place] [facility] 00:00: 00:00 - [facility] 00 :00 [facility] Procedures This patient has no known procedures. Encounters Start End Encounter Admission Attending Care Care Encounter Source Date/Time Date/Time Type Type Clinicians Facility Department ID 2020-07-16 Inpatient HCAPM HCAPM [id number] [facility] 17:11:31 24 [facility] 2018-11-22 2018-11-22 Outpatient Kiel D[place]ont [id number] Common 11:15:00 11:15:[address] [facility] 2018-11-07 2018-11-07 Outpatient [place] [place] [id number] Common 11:30:00 11:30:00 t Decision [address] [facility] 2018-10-14 2018-10-14 Emergency E [facility]NW [facility]NW [id number] [facility] 23:34:00 23:34:00 2018-06-26 2018-06-26 [facility] [id number] Common 15:00:00 15:00:00 t Decision [address] [facility] Results Test Description Test Time Test Comments Results Result Comments Source HCG SERUM 2020-07-16 18:31:00 Test Item Value Reference Range Interpretation Comme nts HCG SERUM (test code = HCG) < 1 mi-IU/ML 0-6 N 0 - 6 NOT > 6 SUGGESTIVE OF EARLY RISES TWO FOLD EVERY 2 DAYS; SUGGEST RECONFIRMING AFTER 2 DAYS. 150,000-[address] TRIMESTER 10,000 - 50,000 2ND & 3RD TRIMESTER BASIC METABOLIC [id number] 18:15:00 Test Item Value Reference Range Interpretation [...] CA) 9.1 MG/DL 8.5-10.1 N CBC W/AUTO [id number] 18:08:00 Test Item Value Reference Range Interpretation [...] = MDIFF) UA RFLX MICR CULT IF [id number] 18:04:00 Test Item Value Reference Range Interpretation [...] Indication for culture: Dysuria/Frequency- US PREG 1ST [id number] 17:52:00 [facility] 2000 Sex: F Name: MARYSE ROBLES [facility] : 2000 Age/S: 20 / F [id number] [address] [place] Unit #: [id number] Loc: [place] [address] Phys: Vishnu Sanon MD Acct: [id number] Dis Date: Status: REG ER PHONE#: [phone] Exam Date: 07/16/2020 172 FAX #: Reason: pelvic pain EXAMS: CPT: [id number] US PREG 1ST TRIMTR 26378 Pelvic ultrasound History: pelvic pain Comparison: None [...] size. The left ovary measures 4.2 x 2.2 x 2.9 cm in size. There is a trace amount of free fluid. No adnexal masses are seen. Spectral Doppler, color flow Doppler and grayscale sonography of the ovaries was performed. There is arterial blood flow identified within both ovaries. There are nabothian cysts in the cerv ix. IMPRESSION: There is a trace amount of free fluid in the pelvis. Otherwise unremarkable exam. No intrauterine is identified. With a given history of positive test and no intrauterine identified, these findings could represent a very early intrauterine or ectopic that is not visualized or a nearly completed . Follow-up beta hCG and pelvic ultrasoundare recommended. at 1752 Reported and signed by: Jax Lujan M.D. PAGE 1 Signed Report (CONTINUED) Name: MARYSE ROBLES [facility] : 2000 Age/S: 20 / F [id number] [address] [place] Unit #: [id number] Loc: [place] [address] Phys: Vishnu Sanon MD Acct: [id number] Dis Date: Status: REG ER PHONE #: [phone] Exam Date: 07/16/2020 1723 FAX #: Reason: pelvic pain EXAMS: CPT: [id number] US PREG 1ST TRIMTR 26123 (Continued) CC: Vishnu Sanon MD Technologist: Barb Mcpherson Trnscb Date/Time: 07/16/2020 (1752) [place] PAGE 2 Signed Report [facility] 2000 Age/S: 20 / F [address] [address] [place] Unit #: [id number] Loc: [place] [address] Phys: Vishnu Sanon MD Acct: [id number] Dis Date: Status: REG ER PHONE #: [phone] Exam Date: 07/16/2020 1723 FAX #: Reason: pelvic pain EXAMS: CPT: [id number] US PREG 1ST TRIMTR 74168 (Continued) Orig Print D/T: S: 07/16/2020 (1755) Probe: PAGE 3 Signed Report- US PREG UT [id number] 17:52:00 [facility] : 2000 Sex: F Name: MARYSE ROBLES [facility] : 2000 Age/S: 20 / F [address] [address] [place] Unit #: [id number] Loc: [place] [address] Phys: Vishnu Sanon MD Acct: [id number] Dis Date: Status: REG ER PHONE #: [phone] Exam Date: 07/16/2020 1723 FAX #: Reason: pelvic pain EXAMS: CPT: [id number] US PREGUT TRANSVAGINAL 66882 Pelvic ultrasound History: pelvic pain Comparison: None at this time Location: H45 Transabdominal and endovaginal sonography of the pelvis was performed. The uterus measures 8.5 x 4.1 x 4.1 centimeters in length, AP diameter and width. The endometrial stripe measures 5 mm in thickness. No intrauterine is identified. The right ovary measures 4.2 x 1.5 x 3.2 cm in size.The left ovary measures 4.2 x 2.2 x 2.9 cm in size. There is a [...] given history of positive test and no intrauterine identified, these findings could represent a very early intrauterine or ectopic that is not visualized or a nearly completed . Follow-up beta hCG and pelvic ultrasound are recommended. at 1752 Reported and signed by: Jax Lujan M.D. PAGE 1 Signed Report (CONTINUED) Name: MARYSE ROBLES [facility] : 2000 Age/S: [place] Unit #: [id number] Loc: [place] [address] Phys: Vishnu Sanon MD Acct: [id number] Dis Date: Status: REG ER PHONE #: [phone] Exam Date: 07/16/2020 172 FAX #: Reason: pelvic pain EXAMS: CPT: [id number] US PREG UT TRANSVAGINAL 39632 (Continued) CC: Vishnu Sanon MD Technologist: Barb Mcpherson Trnohb Date/Time: 07/16/2020 (1751) [place] PAGE 2 Signed Report Name: MARYSE ROBLES [facility] : 2000Age/S: [id number] [address] [place] Unit #: [id number] Loc: [place] [address] Phys: Jean-Pierre Sanon Acct: [id number] Dis Date: Status: REG ER PHONE #: [phone] Exam Date: 07/16/2020 172 FAX#: Reason: pelvic pain EXAMS: CPT: [id number] US PREG UT TRANSVAGINAL [address]180 (Continued) Orig Print D/T: S: 07/16/2020 (3112) Probe: [id number] PAGE 3 Signed Report
[2022-02-28] MEDS ORDERED: IBUPROFEN 200 MG TAB PO ONE (14:13)
[2022-02-28] MEDS ORDERED: FAMOTIDINE 20 MG TAB ONE (14:13)
[2022-02-28] MEDS ORDERED: predniSONE 20 MG TAB ONE (14:13)
[2022-02-28] MEDS ORDERED: HYDROCODONE/APAP 5/325 MG TAB ONE (14:14)
[2022-02-28] MEDS ORDERED: AMOX/K CLAV 875 MG TAB ONE (14:15)
--- NOTE | 2022-02-28 14:31 | ER ---
Nurse's Notes [facility] Name: Henny Hamilton Age: 21 yrs Sex: Female : 2000 Arrival Date: 02/28/2022 Time: 11:04 Bed 12 Private MD: Diagnosis: Acute bronchitis, unspecified;Otitis media, unspecified, bilateral Presentation: 02/28 12:00 Chief complaint: Patient states: headache, cough, sneezing and sore throat that began ss . Patient reports that her daughter just recently had the flu. Coronavirus screen: Client denies travel out of the [place] in the last 14 days. Ebola Screen:. Initial Sepsis Screen: Does the patient meet any 2 criteria? No. Patient's initial sepsis screen is negative. Does the patient have a suspected source of infection? No. Patient's initial sepsis screen is negative. Risk Assessment: Do you want to hurt yourself or someone else? Patient reports no desire to harm self or others. Onset of symptoms was February 25, 2022. 12:00 Method Of Arrival: Ambulatory ss 12:00 Acuity: ROULA 4 ss Historical: - Allergies: 12:01 Doxycycline; ss - Home Meds: 12:01 None [Active]; ss - PMHx: 12:01 eczema; ss - PSHx: 12:01 None; ss - Immunization history:: Client reports receiving the 1st dose of the Covid vaccine. - Social history:: Smoking status: Patient denies any tobacco usage or history of. Screenin:49 Abuse screen: Denies threats or abuse. Denies injuries from another. Nutritional ss screening: No deficits noted. Tuberculosis screening: Never had TB. Fall Risk None identified. Assessment: 14:49 Reassessment: Patient appears in no apparent distress at this time. Patient and/or ss family updated on plan of care and expected duration. Pain level reassessed. Patient is alert, oriented x 3, equal unlabored respirations, skin warm/dry/pink. Patient states feeling better. Patient states symptoms have improved. Vital Signs: 12:00 BP 128 / 87; Pulse 89; Resp 16; Temp 99.3(TE); Pulse Ox 100% on R/A; Pain 7/10; ss 12:02 Temp 99.1(O); ss 14:08 Temp 101.1(O); zm ED Course: 11:04 Patient arrived in ED. rg4 11:10 Mariana Joseph FNP-C [facility]. snw 11:11 Vijay Tracey DO is Attending Physician. snw 12:01 Triage completed. ss 12:01 Arm band placed on right wrist. ss 12:06 Strep Sent. zm 12:06 Flu Sent. 12:57 Tere Landis RN is Primary Nurse. ss 14:49 Patient has correct armband on for positive identification. Bed in low position. Call ss light in reach. 14:49 No provider procedures requiring assistance completed. Patient did not have IV access ss during this emergency room visit. Patient admitted, IV remains in place. Administered Medications: 14:18 Drug: HYDROcodone-acetaminophen 5 mg-325 mg 1 tabs Route: PO; ss 14:49 Follow up: Response: No adverse reaction; Marked relief of symptoms ss 14:18 Drug: Motrin (ibuprofen) 600 mg Route: PO; ss 14:49 Follow up: Response: No adverse reaction; Medication administered at discharge. ss 14:18 Drug: Augmentin (Amoxicillin-Clavulanate) 875 mg Route: PO; ss 14:49 Follow up: Response: No adverse reaction; Marked relief of symptoms ss 14:18 Drug: predniSONE 20 mg Route: PO; ss 14:49 Follow up: Response: No adverse reaction; Marked relief of symptoms ss 14:18 Drug: Pepcid (famotidine) 20 mg Route: PO; ss 14:49 Follow up: Response: No adverse reaction; Medication administered at discharge. ss Medication: 14:49 VIS not applicable for this client. ss Outcome: 14:30 Discharge ordered by . snw 14:55 Discharged to home ambulatory. ss 14:55 Condition: good 14:55 Discharge instructions given to patient, family, Instructed on discharge instructions, follow up and referral plans. medication usage, Demonstrated understanding of instructions, follow-up care, medications, Prescriptions given X 4. 14:55 Patient left the ED. ss Signatures: Mariana Joseph FNP-C OPERATIONS CONTROLLER-[facility] Tere Landis RN RN Mohini Epps rg4 Asha Smith
--- NOTE | 2022-02-28 14:31 | EDPHYS ---
Physician Documentation [facility] Name: Henny Hamilton Age: 21 yrs Sex: Female : 2000 Arrival Date: 02/28/2022 Time: 11:04 Bed 12 Private MD: ED Physician Vijay Tracey HPI: 02/28 13:01 This 21 yrs old Black Female presents to ER via Ambulatory with complaints of snw Nausea/Vomiting, Body Aches. 13:01 This 21 yrs old Black Female presents to ER via Ambulatory with complaints of snw Nausea/Vomiting, Body Aches. 13:01 The patient presents to the emergency department with nausea, vomiting. snw 13:01 The patient or guardian reports cough, flu symptoms, low-grade fever, myalgias, no snw appetite. Onset: The symptoms/episode began/occurred suddenly, 4 day(s) ago, and became persistent. Associated signs and symptoms: Pertinent positives: earache, fever, nausea, sore throat, vomiting. Severity of symptoms: At their worst the symptoms were moderate in the emergency department the symptoms are unchanged. The patient has not experienced similar symptoms in the past. The patient has not recently seen a physician. Historical: - Allergies: 12:01 Doxycycline; ss - Home Meds: 12:01 None [Active]; ss - PMHx: 12:01 eczema; ss - PSHx: 12:01 None; ss - Immunization history:: Client reports receiving the 1st dose of the Covid vaccine. - Social history:: Smoking status: Patient denies any tobacco usage or history of. ROS: 12:58 Eyes: Negative for injury, pain, redness, and discharge. snw 12:58 Neck: Negative for injury, pain, and swelling, Cardiovascular: Negative for chest pain, palpitations, and edema, Respiratory: Negative for shortness of breath, cough, wheezing, and pleuritic chest pain, Abdomen/GI: Negative for abdominal pain, diarrhea, and constipation, positive N/V Back: Negative for injury and pain, : Negative for injury, bleeding, discharge, and swelling, MS/Extremity: Negative for injury and deformity, Skin: Negative for injury, rash, and discoloration, Neuro: Negative for headache, weakness, numbness, tingling, and seizure. 12:58 Constitutional: Positive for body aches, chills, fatigue, malaise. 12:58 ENT: Positive for sore throat. Exam: 12:57 Constitutional: This is a well developed, well nourished patient who is awake, alert, snw and in no acute distress. Head/Face: Normocephalic, atraumatic. Eyes: Pupils equal round and reactive to light, extra-ocular motions intact. Lids and lashes normal. Conjunctiva and sclera are non-icteric and not injected. Cornea within normal limits. Periorbital areas with no swelling, redness, or edema. 12:57 Neck: Trachea midline, no thyromegaly or masses palpated, and no cervical lymphadenopathy. Supple, full range of motion without nuchal rigidity, or vertebral point tenderness. No Meningismus. Chest/axilla: Normal chest wall appearance and motion. Nontender with no deformity. No lesions are appreciated. Cardiovascular: Regular rate and rhythm with a normal S1 and S2. No gallops, murmurs, or rubs. Normal PMI, no JVD. No pulse deficits. Respiratory: Lungs have equal breath sounds bilaterally, clear to auscultation and percussion. No rales, rhonchi or wheezes noted. No increased work of breathing, no retractions or nasal flaring. Abdomen/GI: Soft, non-tender, with normal bowel sounds. No distension or tympany. No guarding or rebound. No evidence of tenderness throughout. Back: No spinal tenderness. No costovertebral tenderness. Full range of motion. Skin: Warm, dry with normal turgor. Normal color with no rashes, no lesions, and no evidence of cellulitis. MS/ Extremity: Pulses equal, no cyanosis. Neurovascular intact. Full, normal range of motion. Neuro: Awake and alert, GCS 15, oriented to person, place, time, and situation. Cranial nerves II-XII grossly intact. Motor strength 5/5 in all extremities. Sensory grossly intact. Cerebellar exam normal. Normal gait. Psych: Awake, alert, with orientation to person, place and time. Behavior, mood, and affect are within normal limits. 12:57 ENT: Ear canal(s): are normal, TM's: dullness, erythema. 12:57 ENT: Mouth: is normal, Oral mucosa: normal, Posterior pharynx: erythema, that is moderate. Vital Signs: 12:00 BP 128 / 87; Pulse 89; Resp 16; Temp 99.3(TE); Pulse Ox 100% on R/A; Pain 7/10; ss 12:02 Temp 99.1(O); ss 14:08 Temp 101.1(O); zm MDM: 12:25 Patient medically screened. snw 14:35 Data reviewed: vital signs, nurses notes. Data interpreted: Pulse oximetry: on room air snw is 100 %. Interpretation: normal. Counseling: I had a detailed discussion with the patient and/or guardian regarding: the historical points, exam findings, and any diagnostic results supporting the discharge/admit diagnosis, lab results, the need for outpatient follow up, to return to the emergency department if symptoms worsen or persist or if there are any questions or concerns that arise at home. Response to treatment: the patient's symptoms have mildly improved after treatment. Special discussion: Based on the history and exam findings, there is no indication for further emergent testing or inpatient evaluation. I discussed with the patient/guardian the need to see the primary care provider for further evaluation of the symptoms. 02/28 12:03 Order name: Flu; Complete Time: 13:26 ss 02/28 12:03 Order name: Strep; Complete Time: 13:13 ss 02/28 12:03 Order name: COVID-19 SARS RT PCR (Document "Date of Onset" if Symptomatic); Complete ss Time: 16:05 06 13:13 Order name: Throat Culture EDMS Administered Medications: 14:18 Drug: HYDROcodone-acetaminophen 5 mg-325 mg 1 tabs Route: PO; ss 14:49 Follow up: Response: No adverse reaction; Marked relief of symptoms ss 14:18 Drug: Motrin (ibuprofen) 600 mg Route: PO; ss 14:49 Follow up: Response: No adverse reaction; Medication administered at discharge. ss 14:18 Drug: Augmentin (Amoxicillin-Clavulanate) 875 mg Route: PO; ss 14:49 Follow up: Response: No adverse reaction; Marked relief of symptoms ss 14:18 Drug: predniSONE 20 mg Route: PO; ss 14:49 Follow up: Response: No adverse reaction; Marked relief of symptoms ss 14:18 Drug: Pepcid (famotidine) 20 mg Route: PO; ss 14:49 Follow up: Response: No adverse reaction; Medication administered at discharge. ss Disposition: 17:10 Co-signature as Attending Physician, Vijay Tracey DO I was immediately available onsite ms3 in the emergency department for consultation in the care of the patient. Disposition Summary: 02/28/22 14:30 Discharge Ordered Location: Home snw Condition: Stable snw Diagnosis - Acute bronchitis, unspecified snw - Otitis media, unspecified, bilateral snw Followup: snw - With: Emergency Department - When: As needed - Reason: Worsening of condition Followup: snw - With: Private Physician - When: 2 - 3 days - Reason: Recheck today's complaints, Continuance of care, Re-evaluation by your physician Discharge Instructions: - Discharge Summary Sheet snw - Acute Bronchitis, Adult snw - Otitis Media, Adult snw - Rehydration, Adult snw Forms: - Medication Reconciliation Form snw - Thank You Letter snw - Antibiotic Education snw - Prescription Opioid Use snw - Work release form snw Prescriptions: - Augmentin 875-125 mg Oral Tablet - take 1 tablet by ORAL route every 12 hours for 10 days; 20 tablet; Refills: 0, snw Product Selection Permitted - Zyrtec 10 mg Oral Tablet - take 1 tablet by ORAL route once daily As needed; 20 tablet; Refills: 0, snw Product Selection Permitted - Prednisone 20 mg Oral Tablet - take 2 tablets by ORAL route once daily for 5 days; 10 tablet; Refills: 0, snw Product Selection Permitted - Pepcid 20 mg Oral Tablet - take 1 tablet by ORAL route once daily; 20 tablet; Refills: 0, Product snw Selection Permitted Signatures: Dispatcher [employer] Mariana Bernal, JIM-C RESIDENTIAL PROPERTY TAX APPRAISER-[place] Tere Landis, RN RN ss Vijay Tracey DO DO ms3
[2022-02-28 15:03] VITALS: BP 128/87; O2SAT 100
[2022-02-28 15:04] VITALS: TEMP 101.1
== END 2022-02-28 14:55 | disposition home or self-care (01) ==
LOC: ER 11:01
DX: J20.9 Acute bronchitis, unspecified (principal); H66.93 Otitis media, unspecified, bilateral; Z20.822 Contact with and (suspected) exposure to COVID-19; Z88.1 Allergy status to other antibiotic agents
CPT/HCPCS: 87070; 87081; 87804 ×2; 99283; U0003; J7512

== ENCOUNTER 2022-03-08 13:46 | Emergency (ER) | payer OTHER ==
--- OUTSIDE RECORDS SUMMARY | 2022-03-08 13:50 | XMS REPORT | Continuity of Care Document ---
:2000 Author Organization [facility] t Address [address] [place] [address] Care Team Providers Name Role Phone LITA FLOREZ Primary Care Physician Unavailable MARYAM CAPONE Attending Clinician Unavailable Maryam Reynoso Attending Clinician Payers Payer Name Policy Type Policy Number Effective Date Expiration Date S dafne [employer] [id number] 2021 00:00:00 Problems Condition Condition Condition Status Onset Resolution Last Treating Co mments Source Name Details Category Date Date Treatment Clinician Date PCOS PCOS Disease Active Univers (polycysti (polycysti 8-24 it y of c ovarian c ovarian [place] syndrome[place] syndrome[place] 00 [facility] Branch Other Other Disease Active Univers 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 [place] 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[place] an[place]ias 00 [facility] Branch Abdominal Abdominal Disease Active Uni vers pain, pain, 1-08 ity of unspecifie [place]specif[place] Medical abdominal abdominal Bran ch location location Iron Iron Disease Active 2016-04 Univers deficiency deficiency 2-21 it y of anemia anemia 00:00: [address] Branch Amenorrhea Amenorrhea Disease Active 2016-04 U nivers 2-11 ity of 00:00: [address] Screening Screening Disease Active Uni vers for STDs for STDs 1-19 ity of (sexually (sexually 00:[place] transmitte transmitte 00 Me dical d d Branch diseases) diseases) Miscarriag Miscarriag Disease Active U nivers e within e within -19 ity of last 12 last 12 00:00: [place] months months 00 Medical Branch Overweight Overweight Disease Active U nivers (BMI (BMI 8-24 ity of 25.0-29.9) 25.0-29.9) [place] Elevated Elevated Disease Active Unive rs blood blood 5-13 ity of pressure pressure 00:00: [place] reading reading 00 Medical without without Branch diagnosis diagnosis of of hypertensi hypertensi on on Attention Attention Disease Active Overview: Univers deficit deficit -08 Formattin ity o f hyperactiv hyperactiv 00:00: g of this [place] ity ity 00 note Medical disorder disorder might be Bran ch (ADHD) (ADHD) different from the original. 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 Serum Serum Diagnosis Active Common positive positive Spirit for for - [facility] Treponema Treponema pallidum pallidum [facility] by PCR by PCR [facility] Allergies, Adverse Reactions, Alerts Allergy Allergy Status Severity Reaction(s) Onset Inactive Treating Comm ents Source Name Type Date Date Clinician No Known DA Active U [facility] Allergie 07-16 [place] 00:00: d [facility] No Known DA Active U [facility] Allergie 07-16 [place] 00:00: d [facility] Amoxicil Propensi Active Rash Univer s casper ty to 1-17 ity of adverse 00:00: [place] reaction 00 Medical s Branch AMOXICIL DRUG Active Rash Univers CASPER INGREDI -17 ity of 00:00: [place] 00 Medical Branch Doxycycl Propensi Active Hives Hives Univer s ine ty to 7-08 ity of adverse 00:00: [place] reaction 00 Medical s Branch DOXYCYCL DRUG Active Hives Univers INE INGREDI 7-08 ity of 00:00: [place] 00 Medical Branch Doxycycl Adverse Active hives Common ine Reaction Spirit - [facility] Social History Social Habit Start Date Stop Date Quantity Comments Source Exposure to 2022-02-21 2022-03-03 Not sure [facility] SARS-CoV-2 (event) 00:00:00 18:01:00 Medica l Branch Alcohol intake 2022-03-03 2022-03-03 0 /d [facility] 00:00:00 00:00:00 Medical Branch Sex Assigned At [birth year] [facility] 00:00:00 00:00:00 Medical Branch Smoking Status Start Date Stop Date Source Never smoked tobacco [facility] Medications Ordered Filled Start Stop Current Ordering Indication Dosage Frequency Signature Comments Components Source Medication Medication Date Date Medication? Clinician (SIG) Name Name ondansetron 2021-04 Yes [id number] 4mg Take 1 Univers 4 mg -09 tablet by ity of disintegrat 00:00: mouth [place] ing tablet 00 every 8 Medica l (eight) Branch hours as needed for Nausea and Vomiting (N/V). lidocaine Yes [id number] 10mL Take 10 mL Univers 2% viscous 1-04 by mouth ity o f (LIDOCAINE 00:00: every 6 [place] VISCOUS) 2 00 (six) Medical % solution hours as Branc h needed for Local anesthesia . Doxycycline Doxycycline 2019- No Bill 1 tablet Common Monohydrate Monohydrate 11-22 0814 [place] Spirit 00:00: 00:00 - [facility] 00 :00 [facility] 2017-04 Yes Take by Univer s 25/iron 0-23 mouth. ity of fum/folic/d 15:31: [place] mcdonald 03 Medical (-1 Branch ORAL) Immunizations Ordered Immunization Filled Immunization Date Status Commen ts Source Name Name HPV9 2018-01-17 Completed University of 00:00:[address] [facility] HPV9 2017-03-30 Completed University of 00:00:[address] [facility] Meningococcal 2017-03-30 Completed [facility] 00:00:00 [facility] (groups A, C, Y and Branc h W-135) conjugate vaccine (MCV4P) Rubella 2011-11-16 Completed [facility] 00:00:[address] [facility] Vital Signs Vital Name Observation Time Observation Value Comments Source Systolic blood 2022-03-03 23:19:00 148 mm[Hg] Univer sity of pressure [facility] Diastolic blood 2022-03-03 23:19:00 98 mm[Hg] Unive rsity of [facility] Heart rate 2022-03-03 23:19:00 71 /min Universi [facility] Body temperature 2022-03-03 23:19:00 37 [facility] Respiratory rate 2022-03-03 23:19:00 22 /min [facility] Body weight 2022-03-03 23:19:00 74.844 kg [facility] Oxygen saturation in 2022-03-03 23:19:00 99 /min [facility] Arterial blood by [facility] Pulse oximetry Branch Procedures Procedure Date / Time Performed Performing Clinician Sour e POCT TEST 2022-03-03 23:50:00 Maryam Capone [facility] CONSENT/REFUSAL FOR 2022-03-03 23:08:52 Doctor Unassigned, No Un [facility] DIAGNOSIS AND Name [facility] TREATMENT Encounters Start End Encounter Admission Attending Care Care Encounter Source Date/Time Date/Time Type Type Clinicians Facility Department ID 2020-07-16 Inpatient HCAPM HCAPM [id number] [facility] 17:11:31 24 [facility] 2022-03-03 2022-03-03 Emergency X KIKE CAPONE ERT [id number] [facility] 17:20:00 18:32:00 MARYAM [facility] 2022-03-03 2022-03-03 Emergency KIKE Capone [id number] Univers 17:20:00 18:32:00 Maryam ADAMES [id number] i [facility] [id number] [facility] [id number] [place] [id number] Branch 2018-11-22 2018-11-22 [id number] Common 11:15:00 11:15:[address] [facility] 2018-11-07 2018-11-07 Outpatient Kiel Flores [id number] Common 11:30:00 11:30:[address] [facility] 2018-10-14 2018-10-14 Emergency E [facility] [id number] [facility] 23:34:00 23:34:00 2018-06-26 2018-06-26 Outpatient Kiel Flores [id number] Common 15:00:00 15:00:[address] [facility] Results Test Description Test Time Test Comments Results Result Comments Source POCT TEST 2022-03-03 23:50:00 Test Item Value Reference Range Interpretation Comme nts POCT PREG (test code = 1605) negative On board controls acceptable with C Line (test code = 3574) present Lab Interpretation (test code = 75634-4) Normal [facility] [place] [facility] [id number] 18:31:00 Test Item Value Reference Range Interpretation Comments HCG SERUM (test < 1 mi-IU/ML 0-6 N 0 - 6 NOT P REGNANT > 6 code = HCG) SUGGESTIVE OF E BERNA RISES TWO FOLD EVERY 2 DAYS; S UGGEST RECONFIRMING AF TER 2 DAYS. 150,000-2 [address] TRIMESTER 10 ,000 - 50,000 2ND & 3R D TRIMESTER BASIC METABOLIC [id number] 18:15:00 Test Item Value Reference Range Interpretation [...] CA) 9.1 MG/DL 8.5-10.1 N CBC W/AUTO [id number] 18:08:00 Test Item Value Reference Range Interpretation [...] = MDIFF) UA RFLX MICR CULT IF [id number] 18:04:00 Test Item Value Reference Range Interpretation [...] Indication for culture: Dysuria/Frequency- US PREG 1ST [id number] 17:52:00 [facility] 2000 Sex: F Name: MARYSE ROBLES [facility] : 2000 Age/S: 20 / F [address] Unit #: [id number] Loc: [place] [address] Phys: Vishnu Sanon MD Acct: [id number] Dis Date: Status: REG ER PHONE#: [phone] Exam Date: 07/16/2020 1723 FAX #: Reason: pelvic pain EXAMS: CPT: [id number] US [id number] TRIMTR [id number] Pelvic ultrasound History: pelvic pain Comparison: None at this time Location: [id number] and endovaginal sonography of the pelvis was performed. The uterus measures 8.5 x 4.1x 4.1 centimeters in length, AP diameter and [...] 1 Signed Report (CONTINUED) Name: MARYSE ROBLES [facility] : 2000 Age/S: 20 / F [address] Unit #: [id number] Loc: [place] [address] Phys: Vishnu Sanon MD Acct: [id number] Dis Date: Status: REG ER PHONE #: [phone] Exam Date: 07/16/2020 1723 FAX #: Reason: pelvic pain EXAMS: CPT: [id number] US PREG 1ST TRIMTR 03657 (Continued) CC: Vishnu Sanon MD Technologist: Barb Mcpherson [facility] Date/Time: 07/16/2020 (175) [place] PAGE 2 Signed Report Name: M[facility] ROBLES [facility] [place] : 2000 Age/S: 20 /F [address] Unit #: [id number] Loc: [place] [address] Phys: Vishnu Sanon MD Acct: [id number] Dis Date: Status: REG ER PHONE #: [phone] Exam Date: 07/16/20201722 FAX #: Reason: pelvic pain EXAMS: CPT: [id number] US PREG 1ST TRIMTR 44120 (Continued) Orig Print D/T: S: 07/16/2020 (1755) Probe: PAGE 3 Signed Report- US PREG UT [id number] 17:52:00 [facility] : 2000 Sex: F Name: MARYSE ROBLES [facility] : 2000 Age/S: 20 / F [address] Unit #: [id number] Loc: [place] [address] Phys: Vishnu Sanon MD Acct: [id number] Dis Date: Status: REG ER PHONE #: [phone] Exam Date: 07/16/20201722 FAX #: Reason: pelvic pain EXAMS: CPT: [id number] US PREG UT TRANSVAGINAL 43248 Pelvic ultrasound History: pelvic pain Comparison: None at this time Location: [facility] Transabdominal and endovaginal sonography of the pelvis [...] [place] : 2000 Age/S: 20 / F [address] [address] Unit #: [id number] Loc: [place] [address] Phys: Vishnu Sanon MD Acct: [id number] Dis Date: Status: REG ER PHONE #: [phone] Exam Date: 07/16/2020 172 FAX #: Reason: pelvic pain EXAMS: CPT: [id number] US PREG UT TRANSVAGINAL 53358 (Continued) CC: Vishnu Sanon MD Technologist: Barb Mcpherson Trnscb Date/Time: 07/16/2020 (175) [facility] PAGE 2 Signed Report Name: MARYSE ROBLES [place] : 2000 Age/S: 20 / F [address] [address] Unit #: [id number] Loc: [place] [address] Phys: Vishnu Sanon MD Acct: [id number] Dis Date: Status: REG ER PHONE #: [phone] Exam Date: 07/16/2020 172 FAX #:Reason: pelvic pain EXAMS: CPT: [id number] US PREG UT TRANSVAGINAL [id number] (Continued) Orig Print D/T: S: 07/16/2020 (1755) Probe: [id number] PAGE 3 Signed Report
--- NOTE | 2022-03-08 14:16 | ER ---
Nurse's Notes [facility] Name: Henny Hamilton Age: 21 yrs Sex: Female : 2000 Arrival Date: 03/08/2022 Time: 13:49 Bed IW1 Private MD: Diagnosis: Person with feared health complaint in whom no diagnosis is made Presentation: 03/08 14:07 Chief complaint: Patient states: I was here on Tuesday02/28/2022 - Work note was until ss 03/04/22. Pt reports fever continuing until yesterday 03/07/2022. Upon arrival NO fever. 98.8. Requesting work note. Coronavirus screen: At this time, the client does not indicate any symptoms associated with coronavirus-19. Ebola Screen: No symptoms or risks identified at this time. Initial Sepsis Screen: Does the patient meet any 2 criteria? No. Patient's initial sepsis screen is negative. Does the patient have a suspected source of infection? No. Patient's initial sepsis screen is negative. Risk Assessment: Do you want to hurt yourself or someone else? Patient reports no desire to harm self or others. Onset of symptoms was March 08, 2022. 14:07 Method Of Arrival: Ambulatory ss 14:07 Acuity: ROULA 4 ss Triage Assessment: 14:11 General: Appears in no apparent distress. comfortable, Behavior is calm, cooperative, ss appropriate for age. Pain: Denies pain. EENT: No signs and/or symptoms were reported regarding the EENT system. Neuro: Level of Consciousness is awake, alert, obeys commands, Oriented to person, place, time, situation. Cardiovascular: Capillary refill < 3 seconds Patient's skin is warm and dry. Respiratory: Airway is patent Respiratory effort is even, unlabored. GI: Abdomen is flat, non-distended. : No signs and/or symptoms were reported regarding the genitourinary system. Derm: No signs and/or symptoms reported regarding the dermatologic system. Musculoskeletal: No signs and/or symptoms reported regarding the musculoskeletal system. 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 - Social history:: Smoking status: Patient denies any tobacco usage or history of. Patient/guardian denies using alcohol. Screenin:06 Abuse screen: Denies threats or abuse. Denies injuries from another. Nutritional ld1 screening: No deficits noted. Tuberculosis screening: No symptoms or risk factors identified. Fall Risk None identified. Assessment: 15:06 Reassessment: See triage assessment. ld1 Vital Signs: 14:07 BP 126 / 71; Pulse 76; Resp 18; Temp 98.8(O); Pulse Ox 100% on R/A; Weight 74.84 kg; ss Height 5 ft. 6 in. (167.64 cm); Pain 0/10; 15:06 BP 133 / 71; Pulse 74; Resp 18; Pulse Ox 100% on R/A; ld1 14:07 Body Mass Index 26.63 (74.84 kg, 167.64 cm) ED Course: 13:49 Patient arrived in ED. mr 13:58 Jesus Manuel Moe PA is PHCP. [facility] 13:58 Paul Joel MD is Attending Physician. [facility] 14:11 Triage completed. ss 14:11 Arm band placed on right wrist. ss 15:06 Sylvie Lemons, ULISES is Primary Nurse. ld1 15:06 Patient has correct armband on for positive identification. Call light in reach. Pulse ld1 ox on. NIBP on. Warm blanket given. 15:06 No provider procedures requiring assistance completed. Patient did not have IV access ld1 during this emergency room visit. Administered Medications: No medications were administered Medication: 15:06 VIS not applicable for this client. ld1 Outcome: 14:15 Discharge ordered by . [facility] 15:06 Discharged to home ambulatory. ld1 15:06 Condition: stable 15:06 Discharge instructions given to patient, Instructed on discharge instructions, follow up and referral plans. Demonstrated understanding of instructions, follow-up care. 15:07 Patient left the ED. ld1 Signatures: Jesus Manuel Moe PA PA jmm Rivera, Mary mr KangTere mckenna, RN RN ss Sylvie Lemons, ULISES RN ld1 Corrections: (The following items were deleted from the chart) 14:12 14:07 Temp 98.8F Oral; ss ss
--- NOTE | 2022-03-08 14:16 | EDPHYS ---
Physician Documentation [facility] Name: Henny Hamilton Age: 21 yrs Sex: Female : 2000 Arrival Date: 03/08/2022 Time: 13:49 Bed IW1 Private MD: ED Physician Paul Joel HPI: 03/08 14:13 This 21 yrs old Black Female presents to ER via Ambulatory with complaints of Work Note.jmm 14:13 This is a 21 year old female with a history of eczema that presents to the ED with jmm complaints of recent viral illness. Patient was sent by work to get clearance to go back to work. . 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 - Social history:: Smoking status: Patient denies any tobacco usage or history of. Patient/guardian denies using alcohol. ROS: 14:13 Constitutional: Negative for fever, chills, and weight loss, Cardiovascular: Negative jmm for chest pain, palpitations, and edema, Respiratory: Negative for shortness of breath, cough, wheezing, and pleuritic chest pain, Abdomen/GI: Negative for abdominal pain, nausea, vomiting, diarrhea, and constipation. 14:13 All other systems are negative. Exam: 14:13 Constitutional: This is a well developed, well nourished patient who is awake, alert, jmm and in no acute distress. Head/Face: atraumatic. Eyes: EOMI, no conjunctival erythema appreciated ENT: Moist Mucus Membranes Neck: Trachea midline, Supple Chest/axilla: Normal chest wall appearance and motion. Cardiovascular: Regular rate and rhythm. No edema appreciated Respiratory: Normal respirations, no respiratory distress appreciated Abdomen/GI: Non distended Back: Normal ROM Skin: General appearance color normal MS/ Extremity: Moves all extremities, no obvious deformities appreciated, no edema noted to the lower extremities Neuro: Awake and alert Psych: Behavior is normal, Mood is normal, Patient is cooperative and pleasant Vital Signs: 14:07 BP 126 / 71; Pulse 76; Resp 18; Temp 98.8(O); Pulse Ox 100% on R/A; Weight 74.84 kg; ss Height 5 ft. 6 in. (167.64 cm); Pain 0/10; 15:06 BP 133 / 71; Pulse 74; Resp 18; Pulse Ox 100% on R/A; ld1 14:07 Body Mass Index 26.63 (74.84 kg, 167.64 cm) ss MDM: 14:10 [facility]. [facility] 14:13 Data reviewed: vital signs, nurses notes. Counseling: I had a detailed discussion with [place] the patient and/or guardian regarding: the historical points, exam findings, and any diagnostic results supporting the discharge/admit diagnosis, the need for outpatient follow up, to return to the emergency department if symptoms worsen or persist or if there are any questions or concerns that arise at home. Administered Medications: No medications were administered Disposition: 16:16 Co-signature as Attending Physician, Paul Joel MD. rn Disposition Summary: 03/08/22 14:15 [facility]charge [facility]able [facility] Diagnosis - Person with feared health complaint in whom no diagnosis is made [facility] - With: Private Physician - When: 2 - 3 days - Reason: Recheck today's complaints, Continuance of care, Re-evaluation by your physician Discharge Instructions: - Discharge Summary Sheet [facility] Forms: - Work release form [facility] - Medication Reconciliation Form [facility] - Thank You Letter [facility] - Antibiotic Education jm - Prescription Opioid Use [facility] Signatures: Jesus Manuel Moe PA PA jmm Nieto, Roman, MD MD rn Tere Landis RN RN ss
[2022-03-08 16:57] VITALS: TEMP 98.8; O2SAT 100
[2022-03-08 16:59] VITALS: BP 133/71
== END 2022-03-08 15:07 | disposition home or self-care (01) ==
LOC: ER 13:46
DX: Z71.1 Person with feared health complaint in whom no diagnosis is made (principal)
CPT/HCPCS: 99283

== ENCOUNTER 2024-12-05 20:11 | Emergency (ER) | payer OTHER, SELFPAY ==
[2024-12-05 21:31] LABS: Absolute Lymphocytes (CBC) 2.1 K/uL (0.7-4.9); Hematocrit 34.2 % (36.0-45.0); Hemoglobin 11.0 g/dL (12.0-15.0); MCH 24.2 pg (27.0-35.0); MCHC 32.1 g/dL (32.0-36.0); MCV 75.4 fL (80-100); MPV 7.1 fL (7.6-11.3); Nucleated RBC Absolute Count 0.0 (0-0); Nucleated Red Blood Cells % 0.0 % (0-0); RBC Red Blood Cell Count 4.54 M/uL (3.86-4.86); White Blood Count 4.20 thou/uL (4.3-10.9)
[2024-12-05 21:53] LABS: Urine Culture Reflex Order NOT NEEDED; Urine Microscopic Reflex YN ORDER UMIC
[2024-12-05 21:59] LABS: ALT/SGPT 24.0 U/L (13-56); AST/SGOT 15.0 U/L (15-37); Albumin 3.8 g/dL (3.4-5.0); Albumin/Globulin Ratio 1.0 (1.1-1.8); Alkaline Phosphatase 40.0 U/L (45-117); Anion Gap 7.5 mEq/L (5.0-15.0); BUN Blood Urea Nitrogen 13.0 mg/dL (7-18); Globulin 4.0 g/dL (2.3-3.5); Glucose Level 115.0 mg/dL (74-106); Lipase 23.0 U/L (13-75); Potassium 3.5 mEq/L (3.5-5.1)
[2024-12-05 22:03] LABS: Anisocytosis 1+; Blood Morphology Comment NOTED (NOT SEEN); Macrocytosis SLIGHT; Microcytosis SLIGHT; White Blood Cell Scan OK (OK)
[2024-12-05 22:04] LABS: Ovalocytes SLIGHT
--- NOTE | 2024-12-05 22:10 | RAD REPORT ---
EXAM: Transvaginal OB HISTORY: 5-6 weeks preg, abd cramping, known cyst COMPARISON: None TECHNIQUE: Multiple grayscale and color Doppler images were obtained in a transvaginal pelvic ultraso und. Spectral analysis of the Doppler waveforms of the ovaries were performed. FINDINGS: UTERUS: There is an intrauterine gestational sac. This contains a yolk sac and pole. [place]-rump length: 0.2 cm which estimates gestational age at 5 week 5day. No heart tones identified likely due to early dates. No evidence of subchorionic hemorrhage. No free fluid is seen in the pelvis. RIGHT OVARY: Normal flow without focal mass. LEFT OVARY: Normal flow without focal mass. IMPRESSION: Single IUP identified with yolk sac and pole measuring 5 week 5 day by crown-rump length. No fe mariola heart tones identified which is probably due to early dates.
--- NOTE | 2024-12-05 22:34 | EDPHYS ---
Physician Documentation [facility] Name: Henny Hamilton Age: 24 yrs Sex: Female : 2000 Arrival Date: 12/05/2024 Time: 20:11 Bed 19 Private MD: ED Physician Paul Joel HPI: 12/05 21:10 This 24 yrs old Black Female presents to ER via Ambulatory with complaints of Abdominal rn Cramping, Low Back Pain, 6 weeks . 21:10 Patient reports lower abdominal cramping and pink when wiping. Denies blood or clot. rn Had ultrasound 2 days ago but does not know results. Patient has had 5 pregnancies and no living children. No trauma. No fever or chills. Does report dysuria.. 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 - Infectious Disease History:: Denies. - Social history:: Smoking status: Patient denies any tobacco usage or history of. Patient/guardian denies using alcohol, street drugs. - Family history:: not pertinent. - Hospitalizations: : No recent hospitalization is reported. ROS: 21:10 Constitutional: Negative for fever, chills, and weight loss, Cardiovascular: Negative rn for chest pain, palpitations, and edema, Respiratory: Negative for shortness of breath, cough, wheezing, and pleuritic chest pain, Abdomen/GI: Positive for lower abdominal cramping : Positive for dysuria, no vaginal bleeding or clots MS/Extremity: Negative for injury and deformity, Exam: 21:10 Constitutional: This is a well developed, well nourished patient who is awake, alert, rn and in no acute distress. Cardiovascular: Regular rate and rhythm. No pulse deficits. Respiratory: No increased work of breathing, no retractions or nasal flaring. Abdomen/GI: Soft, nontender, no peritoneal signs Vital Signs: 20:37 BP 124 / 95; Pulse 79; Resp 16 S; Temp 98.8(O); Pulse Ox 100% on R/A; Weight 72.57 kg lg3 (R); Height 5 ft. 7 in. (R); Pain 5/10; 21:40 BP 122 / 90; Pulse 98; Resp 20; Pulse Ox 100% on R/A; kj2 22:52 BP 124 / 86; Pulse 98; Resp 20; Temp 98; Pulse Ox 100% on R/A; kj2 20:37 Body Mass Index 25.06 (72.57 kg, 170.18 cm) lg3 20:37 Pain Scale: Adult lg3 MDM: 20:17 Medical Screening Exam initiated rn 22:31 ED course: Blood type O+ based on last visit. rn 22:32 Differential diagnosis: Threatened miscarriage, UTI, ovarian cyst. Data reviewed: vital rn signs, nurses notes, lab test result(s), radiologic studies, ultrasound, and as a result, I will discharge patient. Counseling: I had a detailed discussion with the patient and/or guardian regarding the historical points, exam findings, and any diagnostic results supporting the discharge/admit diagnosis, lab results, radiology results, the need for outpatient follow up, to return to the emergency department if symptoms worsen or persist or if there are any questions or concerns that arise at home. Special discussion: Based on the patient's Hx, exam, and Dx evaluation, there is no indication for emergent surgery or inpatient Tx. It is understood by the patient/guardian that if the Sx's persist or worsen they need to return immediately for re-evaluation. I discussed with the patient/guardian in detail that at this point there is no indication for admission to the hospital. It is understood, however, that if the symptoms persist or worsen the patient needs to return immediately for re-evaluation. Based on the history and exam findings, there is no indication for further emergent testing or inpatient evaluation. I discussed with the patient/guardian the need to see the OB Gyne specialist for further evaluation of the symptoms. I discussed with the patient/guardian the need to see the primary care provider for further evaluation of the symptoms. 12/05 20:25 Order name: CBC with Diff; Complete Time: 22:30 rn 12/05 20:25 Order name: CMP; Complete Time: 22:30 rn 12/05 20:25 Order name: Lipase; Complete Time: 22:30 rn 12/05 20:25 Order name: Test, Urine; Complete Time: :30 rn 12/05 20:25 Order name: UA Rfx Nasim Cult if indicated; Complete Time: : rn 12/05 21:35 Order name: CBC Smear Scan; Complete Time: :30 EDLA 12/05 20:45 Order name: US Transvaginal Ob; Complete Time: :30 rn 12/05 20:25 Order name: IV Saline Lock; Complete Time: 21: rn 12/05 20:25 Order name: Labs collected and sent; Complete Time: 21:26 rn Administered Medications: No medications were administered Disposition Summary: 12/05/24 22:33 Discharge Ordered Notes: Location: Home rn Problem: new rn Symptoms: have improved rn Condition: Stable rn Diagnosis - Lower abdominal pain, unspecified rn - Less than 8 weeks gestation of rn Followup: rn - With: Private Physician - When: As needed - Reason: Recheck today's complaints, Re-evaluation by your physician Discharge Instructions: - Discharge Summary Sheet rn - Abdominal Pain, Adult rn - Abdominal Pain During rn - Pain Without a Known Cause rn Forms: - Medication Reconciliation Form rn - 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
--- NOTE | 2024-12-05 22:34 | ER ---
Nurse's Notes [facility] Name: Henny Hamilton Age: 24 yrs Sex: Female : 2000 Arrival Date: 12/05/2024 Time: 20:11 Bed 19 Private MD: Diagnosis: Lower abdominal pain, unspecified;Less than 8 weeks gestation of Presentation: 12/05 20:37 Chief complaint: Patient states: pelvic pain/cramping X1 day. mild spotting. lg3 Coronavirus screen: Client denies travel out of the [place] in the last 14 days. At this time, the client does not indicate any symptoms associated with coronavirus-19. Ebola Screen: No symptoms or risks identified at this time. Initial Sepsis Screen: Does the patient meet any 2 criteria? No. Patient's initial sepsis screen is negative. Does the patient have a suspected source of infection? No. Patient's initial sepsis screen is negative. Risk Assessment: Do you want to hurt yourself or someone else?. Onset of symptoms was December 04, 2024. 20:37 Method Of Arrival: Ambulatory lg3 20:37 Acuity: ROULA 3 lg3 Triage Assessment: 20:39 General: Appears in no apparent distress. uncomfortable, Behavior is calm, cooperative. lg3 Pain: Complains of pain in pelvis. EENT: No deficits noted. No signs and/or symptoms were reported regarding the EENT system. Neuro: No deficits noted. Kee Agitation-Sedation Scale (RASS): 0 - Alert and Calm Level of Consciousness is awake, alert, obeys commands, Oriented to person, place, time, situation. Cardiovascular: No deficits noted. Denies chest pain, shortness of breath, Capillary refill < 3 seconds Clubbing of nail beds is absent JVD is absent Patient's skin is warm and dry. Respiratory: No deficits noted. Airway is patent Respiratory effort is even, unlabored, Respiratory pattern is regular, symmetrical. GI: Abdomen is round non-distended, Bowel sounds present X 4 quads. Reports lower abdominal pain, cramping. : Reports pain in suprapubic area vaginal bleeding that is spotty. Derm: No deficits noted. No signs and/or symptoms reported regarding the dermatologic system. Skin is intact, is healthy with good turgor, Skin is dry, Skin is normal, Skin temperature is warm. Musculoskeletal: No deficits noted. No signs and/or symptoms reported regarding the musculoskeletal system. Circulation, motion, and sensation intact. Range of motion: intact in all extremities. 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 - Infectious Disease History:: Denies. - Social history:: Smoking status: Patient denies any tobacco usage or history of. Patient/guardian denies using alcohol, street drugs. - Family history:: not pertinent. - Hospitalizations: : No recent hospitalization is reported. Screenin:20 [facility] ED Fall Risk Assessment (Adult) History of falling in the last 3 months, kj2 including since admission No falls in past 3 months (0 pts) Confusion or Disorientation No (0 pts) Intoxicated or Sedated No (0 pts) Impaired Gait No (0 pts) Mobility Assist Device Used No (0 pt) Altered Elimination No (0 pt) Score/Fall Risk Level 0 - 2 = Low Risk Maintained a safe environment, Hourly rounding (assess needs \T\ fall precautionary measures) done. Abuse screen: Denies threats or abuse. Denies injuries from another. Nutritional screening: No deficits noted. Tuberculosis screening: No symptoms or risk factors identified. Assessment: 21:19 General: Appears in no apparent distress. Behavior is calm, cooperative. Pain: Denies kj2 pain. Neuro: Level of Consciousness is awake, alert, obeys commands, Oriented to person, place, time, situation. Cardiovascular: Patient's skin is warm and dry. Respiratory: Airway is patent Respiratory effort is even, unlabored. GI: Abd is non tender. GI: Abd is non tender X 4 quads. : No signs and/or symptoms were reported regarding the genitourinary system. 22:46 Reassessment: Patient appears in no apparent distress at this time. Patient and/or kj2 family updated on plan of care and expected duration. Pain level reassessed. Patient is alert, oriented x 3, equal unlabored respirations, skin warm/dry/pink. Vital Signs: 20:37 BP 124 / 95; Pulse 79; Resp 16 S; Temp 98.8(O); Pulse Ox 100% on R/A; Weight 72.57 kg lg3 (R); Height 5 ft. 7 in. (R); Pain 5/10; 21:40 BP 122 / 90; Pulse 98; Resp 20; Pulse Ox 100% on R/A; kj2 22:52 BP 124 / 86; Pulse 98; Resp 20; Temp 98; Pulse Ox 100% on R/A; kj2 20:37 Body Mass Index 25.06 (72.57 kg, 170.18 cm) lg3 20:37 Pain Scale: Adult lg3 ED Course: 20:15 Patient arrived in ED. im 20:17 Paul Joel MD is Attending Physician. rn 20:39 Triage completed. lg3 20:39 Arm band placed on right wrist. lg3 21:19 Awa Collazo RN is Primary Nurse. kj2 21:20 Patient has correct armband on for positive identification. Bed in low position. Call kj2 light in reach. Adult w/ patient. Provided Education on: call light. 21:26 Inserted saline lock: 20 gauge in left antecubital area, using aseptic technique. Blood ts3 collected. Flushed with 10 mL NS. 21:26 Initial lab(s) drawn, by ED staff, sent to lab. ts3 21:26 Urine collected: clean catch specimen, sent to lab. ts3 22:00 Transvaginal Ob In Process Unspecified. EDMS 22:45 No provider procedures requiring assistance completed. IV discontinued, intact, kj2 bleeding controlled, No redness/swelling at site. Pressure dressing applied. Administered Medications: No medications were administered Medication: 21:21 VIS not applicable for this client. kj2 Outcome: 22:33 Discharge ordered by . rn 22:45 Discharged to home ambulatory, kj2 22:45 Condition: stable 22:45 Discharge instructions given to patient, family, Instructed on discharge instructions, follow up and referral plans. Demonstrated understanding of instructions, follow-up care, 22:51 Patient left the ED. kj2 Signatures: Dispatcher [employer] EDMS Paul Joel MD MD rn Able, Lacie, RN RN lg3 McdanielsTana davenport Krystal, RN RN kj2 Carmela Alejandra ts3
[2024-12-05 23:15] VITALS: TEMP 98.8; O2SAT 100
[2024-12-05 23:17] VITALS: BP 122/90
== END 2024-12-05 22:51 | disposition home or self-care (01) ==
LOC: ER 20:11
DX: O26.891 Other specified pregnancy related conditions, first trimester (principal); R10.30 Lower abdominal pain, unspecified; Z3A.01 Less than 8 weeks gestation of pregnancy
CPT/HCPCS: 36415; 76817; 80053; 81001; 81025; 83690; 85025; 99284

== ENCOUNTER 2025-01-25 16:46 | Emergency (ER) | payer OTHER ==
[2025-01-25] MEDS ORDERED: Ringers Lactate 1,000 ML IV ONE (17:05)
[2025-01-25 17:21] LABS: Absolute Lymphocytes (CBC) 1.4 K/uL (0.7-4.9); Hematocrit 36.0 % (36.0-45.0); Hemoglobin 12.2 g/dL (12.0-15.0); MCH 28.7 pg (27.0-35.0); MCHC 33.9 g/dL (32.0-36.0); MCV 84.8 fL (80-100); MPV 6.8 fL (7.6-11.3); Nucleated RBC Absolute Count 0.0 (0-0); Nucleated Red Blood Cells % 0.1 % (0-0); RBC Red Blood Cell Count 4.25 M/uL (3.86-4.86); White Blood Count 4.00 thou/uL (4.3-10.9)
[2025-01-25 17:30] LABS: PT Prothrombin Time 13.0 SECONDS (10-13.0); PTT, Activated Partial Thromb 34.5 SECONDS (27.2-37.4); Protime INR 1.16
[2025-01-25 17:56] LABS: Anisocytosis 2+; Blood Morphology Comment NOTED (NOT SEEN); Hypochromasia 1+; Ovalocytes SLIGHT; Poikilocytosis 1+; Teardrop Cell 1+; White Blood Cell Scan OK (OK)
--- NOTE | 2025-01-25 17:56 | RAD REPORT ---
EXAM: 1St Trimest Single 1St Fetus HISTORY: VAGINAL BLEEDING COMPARISON: None TECHNIQUE: Multiple grayscale and color Doppler images were obtained in a transabdominal pelvic ultra sound. Spectral analysis of the Doppler waveforms of the ovaries were performed. FINDINGS: UTERUS: There is an intrauterine gestational sac. This contains a pole. [place]-rump length: 5.4 cm which estimates gestational age at 12 week 0 day. A heart rate is detected at 155 bpm. No evidence of subchorionic hemorrhage. No free fluid is seen in the pelvis. RIGHT OVARY: Not visualized, possibly obscured by bowel gas. LEFT OVARY: Not visualized, possibly obscured by bowel gas. IMPRESSION: Single live IUP with positive heart tones measuring 12 week 0 day.
[2025-01-25 18:05] LABS: Anion Gap 6.6 mEq/L (5.0-15.0); BUN Blood Urea Nitrogen 10.0 mg/dL (7-18); Glucose Level 84.0 mg/dL (74-106); HCG, Quantitative 9198.0 mIU/mL (1-3); Potassium 3.6 mEq/L (3.5-5.1)
--- NOTE | 2025-01-25 19:54 | EDPHYS ---
Physician Documentation [facility] Name: Henny Hamilton Age: 24 yrs Sex: Female : 2000 Arrival Date: 01/25/2025 Time: 16:46 Bed 8 Private MD: ED Physician Estela Gonzalez HPI: 01/25 16:59 This 24 yrs old Black Female presents to ER via Ambulatory with complaints of 13wks cp , Vaginal Bleeding, Headache, Nose Bleed. 17:00 The patient presents to the emergency department with vaginal bleeding, noticed blood cp when wiping after using restroom. 17:00 course: care: private OB physician, Leakage of Fluid: none cp appreciated. Previous pregnancies: the patient has never been . Associated signs and symptoms: Pertinent positives: lower abdominal cramps, headache, intermittent nosebleed. 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 - Infectious Disease History:: Denies. - Social history:: Smoking status: Patient denies any tobacco usage or history of. ROS: 17:00 Constitutional: Negative for body aches, chills, fever, poor PO intake, cp 17:00 ENT: Negative for drainage from ear(s), ear pain, sinus congestion, sore throat, difficulty swallowing, difficulty handling secretions, 17:00 Respiratory: Negative for cough, shortness of breath, wheezing, 17:00 Abdomen/GI: Positive for lower abdomen cramps, Negative for vomiting, diarrhea, constipation, 17:00 Neuro: Positive for headache, 17:00 All other systems are negative, cp Exam: 17:05 Constitutional: The patient appears in no acute distress, alert, awake, non-toxic, well cp developed, well nourished, 17:05 Head/Face: Normocephalic, atraumatic. cp 17:05 Eyes: Periorbital structures: appear normal, Conjunctiva: normal, no exudate, no injection, Sclera: no appreciated abnormality, Lids and lashes: appear normal, bilaterally, 17:05 ENT: External ear(s): are unremarkable, Nose: is normal, no active bleeding, Mouth: Lips: moist, Oral mucosa: moist, Posterior pharynx: Airway: no evidence of obstruction, patent, Voice: is normal, 17:05 Chest/axilla: Inspection: normal, 17:05 Cardiovascular: Rate: normal, Rhythm: regular, Edema: is not appreciated, JVD: is not appreciated, 17:05 Respiratory: the patient does not display signs of respiratory distress, Respirations: normal, no use of accessory muscles, no retractions, labored breathing, is not present, Breath sounds: are clear throughout, no decreased breath sounds, no stridor, no wheezing, 17:05 Abdomen/GI: Inspection: gravid appearance, is noted, Bowel sounds: active, all quadrants, Palpation: soft, in all quadrants, mild abdominal tenderness, in the left lower quadrant, rebound tenderness, is not appreciated, involuntary guarding, is not appreciated, 17:05 Back: pain, is absent, ROM is normal, 17:05 Neuro: Orientation: to person, place \T\ time. Mentation: is normal, Motor: moves all fours, strength is normal, Vital Signs: 16:57 BP 132 / 80; Pulse 79; Resp 16; Temp 98.6; Pulse Ox 100% on R/A; Pain 6/10; dd2 19:20 BP 131 / 76; Pulse 71; Resp 16 S; Pulse Ox 100% on R/A; Pain 1/10; lg3 16:57 Pain Scale: Adult dd2 19:20 Pain Scale: Adult lg3 MDM: 16:50 Medical Screening Exam initiated cp 17:00 Differential diagnosis: ectopic , uti, dehydration, electrolyte abnormality. 19:54 Data reviewed: vital signs, nurses notes, lab test result(s), radiologic studies, cp ultrasound, and as a result, I will discharge patient. 19:54 Counseling: I had a detailed discussion with the patient and/or guardian regarding the cp historical points, exam findings, and any diagnostic results supporting the discharge/admit diagnosis, lab results, radiology results, the need for outpatient follow up, an OB/Gyne specialist. Response to treatment: the patient's symptoms have markedly improved after treatment, headache and abdominal pain resolved, and as a result, I will discharge patient. 01/25 16:52 Order name: Abo/rh Typing; Complete Time: 17:59 cp 01/25 16:52 Order name: Basic Metabolic Panel; Complete Time: 18:07 cp 01/25 18:08 Interpretation: Normal except: CRE 0.52. cp 01/25 16:52 Order name: CBC with Diff; Complete Time: 17:59 cp 01/25 17:59 Interpretation: Normal except: WBC 4.00; RDW 23.6; MPV 6.8. cp 01/25 16:52 Order name: Test, Urine; Complete Time: 17:59 cp 01/25 17:59 Interpretation: Reviewed. cp 01/25 16:52 Order name: Quantitative Hcg; Complete Time: 18:07 cp 01/25 18:08 Interpretation: HCGQ 9198; Reviewed. cp 01/25 16:52 Order name: PT-INR; Complete Time: 17:59 cp 01/25 16:52 Order name: Ptt, Activated; Complete Time: 17:59 cp 01/25 17:33 Order name: CBC Smear Scan; Complete Time: 17:59 EDMS 01/25 17:05 Order name: 1St Trimest Single 1St Fetus; Complete Time: 17:59 EDMS 01/25 18:00 Interpretation: Report reviewed. cp 01/25 16:52 Order name: IV Saline Lock; Complete Time: 17:20 cp 01/25 16:52 Order name: Labs collected and sent; Complete Time: 17:20 cp 01/25 16:52 Order name: NPO; Complete Time: 17:20 cp Administered Medications: 17:20 Drug: Ringers - Lactated Ringers Solution IV 1000 ml IV at calculated rate bolus; to be jl7 given as a bolus over 60 minutes Route: IV; Rate: calculated rate; Site: right antecubital; 18:09 Not Given (Patient Refused): [id number] mg PO once jl7 Disposition: 01/26 14:54 Chart complete. cp Disposition Summary: 01/25/25 19:54 Discharge Ordered Notes: Location: Home cp Problem: new cp Symptoms: have improved cp Condition: Stable cp Diagnosis - Other specified related conditions, first trimester cp - Lower abdominal pain, unspecified cp - Headache cp - Epistaxis - resolved cp Followup: cp - With: Private Physician - When: 2 - 3 days - Reason: Recheck today's complaints Discharge Instructions: - Discharge Summary Sheet cp - Abdominal Pain During cp - Nosebleed, Adult cp - General Headache Without Cause cp - First Trimester of cp - Activity Restriction During cp Forms: - Medication Reconciliation Form cp - Antibiotic Education cp - Prescription Opioid Use cp - Patient Portal Instructions cp - Leadership Thank You Letter cp Signatures: Dispatcher [employer] EDMS Tacos Tejeda PA-C PA-C cp Leal, Jahala, RN RN jl7 AZALIA SAUCEDO RN RN dd2 Corrections: (The following items were deleted from the chart) 01/25 17:05 16:53 Transvaginal Ob+US.RAD.BRZ ordered. EDMS EDMS
--- NOTE | 2025-01-25 19:54 | ER ---
Nurse's Notes [facility] Name: Henny Hamilton Age: 24 yrs Sex: Female : 2000 Arrival Date: 01/25/2025 Time: 16:46 Bed 8 Private MD: Diagnosis: Other specified related conditions, first trimester;Lower abdominal pain, unspecified;Headache;Epistaxis-resolved Presentation: 01/25 16:57 Chief complaint: Patient states: she is 13 weeks and having lower stomach dd2 cramping and low back pain all week, nose bleeds and headache x 2 weeks and vaginal bleeding that began again today only when wiping. Coronavirus screen: At this time, the client does not indicate any symptoms associated with coronavirus-19. Ebola Screen: No symptoms or risks identified at this time. Initial Sepsis Screen: Does the patient meet any 2 criteria? No. Patient's initial sepsis screen is negative. Does the patient have a suspected source of infection? No. Patient's initial sepsis screen is negative. Risk Assessment: Do you want to hurt yourself or someone else? Patient reports no desire to harm self or others. Onset of symptoms is unknown. 16:57 Method Of Arrival: Ambulatory dd2 16:57 Acuity: ROULA 3 dd2 Triage Assessment: 16:59 General: Appears in no apparent distress. Behavior is calm, cooperative, appropriate dd2 for age. Pain: Complains of pain in low back area and suprapubic area. EENT: Reports nose bleed. Neuro: Reports headache. : Reports vaginal bleeding that is spotty. QUALITATIVE RESEARCHER: 16:59 Verified dd2 17:00 1, Full Term 0, 0, Living 0, Verified cp Historical: - Allergies: 16:59 Doxycycline; dd2 - PMHx: 16:59 Anemia; eczema; dd2 - PSHx: 16:59 None; dd2 - Immunization history:: Adult Immunizations unknown. - Infectious Disease History:: Denies. - Social history:: Smoking status: Patient denies any tobacco usage or history of. Screenin:15 [facility] ED Fall Risk Assessment (Adult) History of falling in the last 3 months, jl7 including since admission No falls in past 3 months (0 pts) Confusion or Disorientation No (0 pts) Intoxicated or Sedated No (0 pts) Impaired Gait No (0 pts) Mobility Assist Device Used No (0 pt) Altered Elimination No (0 pt) Score/Fall Risk Level 0 - 2 = Low Risk Oriented to surroundings, Maintained a safe environment. Abuse screen: Denies threats or abuse. Denies injuries from another. Nutritional screening: No deficits noted. Tuberculosis screening: No symptoms or risk factors identified. Assessment: 17:15 General: Appears in no apparent distress. uncomfortable, Behavior is calm, cooperative, jl7 appropriate for age. Pain: Complains of pain in suprapubic area and low back area Pain currently is 6 out of 10 on a pain scale. Neuro: Kee Agitation-Sedation Scale (RASS): 0 - Alert and Calm Level of Consciousness is awake, alert, obeys commands, Oriented to person, place, time, situation. Cardiovascular: Patient's skin is warm and dry. Respiratory: Airway is patent Respiratory effort is even, unlabored, Respiratory pattern is regular, symmetrical. : Urine is cloudy, Reports pain in suprapubic area Denies burning with urination. Derm: Skin is pink, warm \T\ dry. 18:30 Reassessment: Patient appears in no apparent distress at this time. No changes from jl7 previously documented assessment. Patient and/or family updated on plan of care and expected duration. Pain level reassessed. Patient is alert, oriented x 3, equal unlabored respirations, skin warm/dry/pink. 19:20 General: Appears in no apparent distress. comfortable, Behavior is calm, cooperative. lg3 Pain: Complains of pain in suprapubic area Pain does not radiate. Pain currently is 1 out of 10 on a pain scale. Quality of pain is described as pressure. Neuro: No deficits noted. Kee Agitation-Sedation Scale (RASS): 0 - Alert and Calm Level of Consciousness is awake, alert, obeys commands, Oriented to person, place, time, situation. Cardiovascular: No deficits noted. Denies chest pain, shortness of breath, Capillary refill < 3 seconds Clubbing of nail beds is absent JVD is absent Patient's skin is warm and dry. Respiratory: No deficits noted. Airway is patent Respiratory effort is even, unlabored, Respiratory pattern is regular, symmetrical. GI: No deficits noted. Abdomen is round non-distended, Patient currently denies nausea. : No signs and/or symptoms were reported regarding the genitourinary system. Urine is cloudy. EENT: No deficits noted. Derm: No deficits noted. No signs and/or symptoms reported regarding the dermatologic system. Skin is intact, is healthy with good turgor, Skin is dry, Skin is normal, Skin temperature is warm. Musculoskeletal: No deficits noted. Circulation, motion, and sensation intact. Range of motion: intact in all extremities. Vital Signs: 16:57 BP 132 / 80; Pulse 79; Resp 16; Temp 98.6; Pulse Ox 100% on R/A; Pain 6/10; dd2 19:20 BP 131 / 76; Pulse 71; Resp 16 S; Pulse Ox 100% on R/A; Pain 1/10; lg3 16:57 Pain Scale: Adult dd2 19:20 Pain Scale: Adult lg3 ED Course: 16:48 Patient arrived in ED. mr 16:50 Tacos Tejeda PA-C is PHCP. cp 16:50 Estela Gonzalez MD is Attending Physician. cp 16:59 Triage completed. dd2 16:59 Arm band placed on right wrist. dd2 17:15 Patient has correct armband on for positive identification. Bed in low position. Call jl7 light in reach. Side rails up X 1. Provided Education on: use of call bailey. Warm blanket given. 17:20 Santos Montejo, ULISES is Primary Nurse. jl7 17:30 Initial lab(s) drawn, by fl, sent to lab. Urine collected: clean catch specimen, jl7 cloudy. Inserted saline lock: 22 gauge in right antecubital area, using aseptic technique. Blood collected. Flushed with 10 mL NS. 17:49 1St Trimest Single 1St Fetus In Process Unspecified. EDMS 19:20 Client placed on continuous cardiac and pulse oximetry monitoring. NIBP monitoring lg3 applied. Family accompanied patient. 19:31 Primary Nurse role handed off by Santos Montejo RN vk 20:02 No provider procedures requiring assistance completed. IV discontinued, intact, lg3 bleeding controlled, No redness/swelling at site. Pressure dressing applied. Administered Medications: 17:20 Drug: Ringers - Lactated Ringers Solution IV 1000 ml IV at calculated rate bolus; to be jl7 given as a bolus over 60 minutes Route: IV; Rate: calculated rate; Site: right antecubital; 18:09 Not Given (Patient Refused): [id number] mg PO once jl7 Medication: 17:15 VIS not applicable for this client. jl7 Outcome: 19:54 Discharge ordered by MD. lindquist 20:02 Discharged to home ambulatory, with family, lg3 20:02 Condition: stable 20:02 Discharge instructions given to patient, Instructed on discharge instructions, follow up and referral plans. Demonstrated understanding of instructions, follow-up care, 20:03 Patient left the ED. lg3 Signatures: Dispatcher [employer] EDMS Trinity Luke, Reg Reg Tacos Peña, PA-C PA-C Santos Hatfield RN RN jl7 Sanjana Monteiro RN RN lg3 Kylie Lee DIANA RN RN dd2 Corrections: (The following items were deleted from the chart) 18:38 18:37 General: Appears in no apparent distress. uncomfortable, Behavior is calm, jl7 cooperative, appropriate for age, jl7
[2025-01-25 20:11] VITALS: TEMP 98.6; O2SAT 100
[2025-01-25 20:13] VITALS: BP 131/76
== END 2025-01-25 20:03 | disposition home or self-care (01) ==
LOC: ER 16:46
DX: O26.891 Other specified pregnancy related conditions, first trimester (principal); Z3A.13 13 weeks gestation of pregnancy
CPT/HCPCS: 85025; 80048; 36415; 86900; 81025; 85610; 86901; 85730; 84702; 76801; 96374; 99284; J7120